=== PATIENT | female | born 1960 | race Caucasian/White ===

== ENCOUNTER → 2018-03-26 | Day surgery (SDC) | payer BC ==
[2018-03-22 09:08] LABS: BASOPHILS # (AUTO) 0.1 (0.0-0.1); BASOPHILS % 1.2 % (0.0-1.0); EOSINOPHILS # (AUTO) 0.5 (0.0-0.4); EOSINOPHILS % 5.9 % (0.0-6.0); HEMOGLOBIN 13.6 g/dL (12.0-16.0); LYMPHOCYTES # (AUTO) 1.6 (1.0-3.2); LYMPHOCYTES % 20.2 % (18.0-39.1); MEAN CORPUSCULAR HEMOGLOBIN 29.4 pg (28-32); MEAN CORPUSCULAR VOLUME 86.6 fL (81-99); MONOCYTES # (AUTO) 0.6 (0.2-0.8); MONOCYTES % 7.9 % (4.4-11.3); NEUTROPHILS % 63.9 % (38.7-80.0); PLATELET COUNT 333 x10e3/uL (140-360); RED BLOOD COUNT 4.62 x10e6/uL (3.6-5.1); RED CELL DISTRIBUTION WIDTH 13.6 % (11.7-14.4)
--- NOTE | 2018-03-22 09:16 | Diagnostic Imaging Report ---
PROCEDURE: X-RAY CHEST, TWO VIEWS COMPARISON: [facility], DX, CHEST 2 VIEWS, 02/27/2012, 10:01. INDICATIONS: PREOPERATIVE CHEST XRAY FOR CYSTOSCOPY FINDINGS: LUNGS: No consolidations or edema. PLEURA: No effusions or pneumothorax. HEART \T\ MEDIASTINUM: The heart is within normal size-limits. BONES \T\ SOFT TISSUES: No acute findings. CONCLUSION: No acute thoracic abnormality or significant interval change. [place] Turner D.O. Dictated by: [place] Turner D.O. on 03/22/2018 at 9:20 Electronically approved by: [place] Turner D.O. on 03/22/2018 at 9:20
[2018-03-22 09:25] LABS: ANION GAP 16.7 mmol/L (8-16); BLOOD UREA NITROGEN 15 mg/dL (7-26); BUN/CREATININE RATIO 18 (6-25); CALCIUM 11.1 mg/dL (8.4-10.2); CARBON DIOXIDE 29 mmol/L (22-29); CHLORIDE 101 mmol/L (98-107); CREATININE, SERUM 0.83 mg/dL (0.57-1.11); EST GLOMERULAR FILTRATION RATE > 60 ML/MIN (60-); GLUCOSE 109 mg/dL (74-118); POTASSIUM 4.7 mmol/L (3.5-5.1); SODIUM 142 mmol/L (136-145)
[~2018-03-26] MED LIST: BRISDELLE; CEFTRIAXONE SOD 1 GM VIAL ONE; FENTANYL CITRATE/PF 100MCG/2 ML INJ ONE; LIDOCAINE HCL 2% LOCAL INJ 5 ML SDV VIAL INJ ONE; MIDAZOLAM HCL 2 MG/2 ML VIAL ONE; PAROXETINE HCL20 MG PO; PROPOFOL IV EMULSION 10 MG/ML 20 ML VIAL ONE; SEVOFLURANE INHAL SOLN 250 ML PEN BTL ONE; SIMVASTATIN40 MG PO; Z.0.VYTORIN 10-201 E PO; Z.1.DIOVAN HCT 3201 PO; [UNRECOGNIZED DRUG - OTHER] PO; [UNRECOGNIZED DRUG - OTHER] PO
--- NOTE | 2018-03-27 12:42 | Operative Report ---
DATE OF PROCEDURE: March 26, 2018 PREOPERATIVE DIAGNOSIS: Recurrent urinary tract infections. POSTOPERATIVE DIAGNOSIS: Recurrent urinary tract infections. PROCEDURE PERFORMED: Cystoscopy. ANESTHESIA: General. ESTIMATED BLOOD LOSS: Minimal. INDICATIONS: Ms. Lynn Kolb is a 57-year-old woman with a history of recurrent urinary tract infections and bladder pain. She now presents for management of this problem. PROCEDURE IN DETAIL: The patient was brought into the operating room, placed in supine position and after administration of general anesthesia was placed in a frogleg position and prepped and draped in the usual fashion. Flexible cystoscopy was performed. The anterior and posterior urethra were noted to be normal. The bladder neck was closed at rest. The bladder was entered without difficulty. Upon entrance into the bladder, the ureteral orifices were in their normal anatomical position and produced clear efflux bilaterally. There were no mucosal lesions identified. There were minimal trabeculations noted in the bladder. The bladder mucosa was otherwise completely normal. There were no stones or debris seen floating in the bladder. The bladder was then drained in its entirety and the cystoscope and sheath were removed. The patient was returned to the supine position and anesthesia was reversed. She was transferred to bed and taken to the postanesthesia care unit in good condition. Of note, needle and instrument count were correct at the conclusion of the case. Job#: [id number] JAYANT
== END | disposition home or self-care (01) ==
LOC: OR 11:18
PROVIDERS: ATTEND Urology
DX: N39.0 Urinary tract infection, site not specified (principal); N32.89 Other specified disorders of bladder; I10 Essential (primary) hypertension; Z01.810 Encounter for preprocedural cardiovascular examination; Z01.812 Encounter for preprocedural laboratory examination; Z01.818 Encounter for other preprocedural examination; Z68.41 Body mass index [BMI] 40.0-44.9, adult
CPT/HCPCS: 36415; 52000; 71046; 80048; 85025; 93005; J0696; J2001; J2250

== ENCOUNTER 2019-02-23 10:19 | Emergency (ER) | payer BC ==
[~2019-02-23] VITALS: Ht 157.5 cm; Wt 99.8 kg
[~2019-02-23 10:19] MED LIST changes: -CEFTRIAXONE SOD 1 GM VIAL ONE; -FENTANYL CITRATE/PF 100MCG/2 ML INJ ONE; -LIDOCAINE HCL 2% LOCAL INJ 5 ML SDV VIAL INJ ONE; -MIDAZOLAM HCL 2 MG/2 ML VIAL ONE; -PROPOFOL IV EMULSION 10 MG/ML 20 ML VIAL ONE; -SEVOFLURANE INHAL SOLN 250 ML PEN BTL ONE
--- OUTSIDE RECORDS SUMMARY | 2019-02-23 10:22 | XMS REPORT | Clinical Summary ---
Author Author [facility] Organization [facility] Address Unknown Phone Unavailable Care Team Providers Care History Faculty Member Name Role Phone Parrish Robison DO PCP Allergies No Known Allergies Medications End Date Status Medication Sig Dispensed Refills Start Date Active simvastatin (ZOCOR) 40 MG TK 1 T PO QD 0 tablet 7 Active valsartan-hydrochlorothia Take 1 tablet 0 zide (DIOVAN HCT) 320-25 by mouth mg per tablet daily. Active valACYclovir (VALTREX) TK 2 TS PO Q 0 1000 MG tablet 12 H 8 Active PARoxetine TAKE 1 30 capsule 1 mesylate,menop.sym, 7.5 CAPSULE(7.5 9 mg capsuleIndications: MG) BY MOUTH Well woman exam with EVERY DAY routine gynecological exam 02/10/2019 Discontinued PARoxetine Take 1 tablet 90 capsule 3 mesylate,menop.sym, (7.5 mg 8 (BRISDELLE) 7.5 mg total) by capsuleIndications: Well mouth once woman exam with routine daily. gynecological exam Active Problems Problem Noted Date At risk for breast cancer 08/18/2016 Overview: Overview: High risk surveillance based on elevated lifetime risk of developing breast cancer; Tyrer-Cuzik risk assessment of 17.7-30% increased lifetime risk Family history of malignant melanoma 03/03/2016 Family history of malignant neoplasm of breast in first degree relative 03/03/2016 Family history of malignant neoplasm of uterus 03/03/2016 Encounters Care Team Description Date Type Specialty Ange Dutton MD Well woman exam with routine gynecological exam 02/10/2019 Refill Obstetrics and Gynecology Ange Dutton MD 04/19/2018 Refill Obstetrics and Gynecology after 02/22/2018 Family History Medical History Relation Name Comments Breast cancer Mother Breast cancer Sister Relation Name Status Comments Mother Sister Social History Date Tobacco Use Types Packs/Day Years Used Former Smoker Cigarettes 0.5 10 Smokeless Tobacco: Never Used Alcohol Use Drinks/Week oz/Week Comments Yes 4 Standard drinks or equivalent Sex Assigned at Date Recorded Not on file Industry Job Start Date Occupation Not on file Not on file Not on file Travel End Travel History Travel Start No recent travel history available. Last Filed Vital Signs Not on file Plan of Treatment Care Team Description Date Type Specialty Ange Dutton MD [address] [facility] [address] [place], [place] [id number] 02/27/2019 Office Visit Obstetrics and Gynecology Health Maintenance Due Date Last Done Comments BREAST CANCER SCREENING 2010 COLON CANCER SCREENING 2010 SHINGLES VACCINES (#1) 2010 INFLUENZA VACCINE 04/17/2019 Results Not on fileafter 02/22/2018 Insurance Type Payer Benefit Subscriber ID Effective Phone Address Plan / Dates Group PPO BCBS BCBS xxxxxxxxxxxx 2016-P CHOICE resent PPO/BAYRON BOOTH PPO Advance Directives Patient has advance care planning documents on file. For more information, blaise rojo contact: Raman Rodriguez [address] [place] [address]
[2019-02-23 10:53] LABS: BILIRUBIN,URINE NEGATIVE (NEGATIVE); CLARITY,URINE CLEAR (CLEAR); COLOR,URINE YELLOW (YELLOW); KETONES,URINE NEGATIVE (NEGATIVE); LEUKOCYTE ESTERASE ,URINE NEGATIVE (NEGATIVE); NITRITE,URINE NEGATIVE (NEGATIVE); PROTEIN,URINE DIPSTICK NEGATIVE (NEGATIVE); URINE UROBILINOGEN 0.2 mg/dL (0.2 - 1)
[2019-02-23 10:53] LABS: BASOPHILS # (AUTO) 0.1 (0.0-0.1); BASOPHILS % 0.8 % (0.0-1.0); EOSINOPHILS # (AUTO) 0.3 (0.0-0.4); EOSINOPHILS % 2.9 % (0.0-6.0); HEMATOCRIT 42.7 % (34.2-44.1); HEMOGLOBIN 14.7 g/dL (12.0-16.0); LYMPHOCYTES # (AUTO) 1.3 (1.0-3.2); LYMPHOCYTES % 13.3 % (18.0-39.1); MEAN CORPUSCULAR HEMOGLOBIN 29.9 pg (28-32); MEAN CORPUSCULAR HGB CONC 34.4 g/dL (31-35); MONOCYTES # (AUTO) 0.5 (0.2-0.8); MONOCYTES % 5.7 % (4.4-11.3); NEUTROPHILS # (AUTO) 7.2 (2.1-6.9); NEUTROPHILS % 76.6 % (38.7-80.0); PLATELET COUNT 290 x10e3/uL (140-360); RED BLOOD COUNT 4.91 x10e6/uL (3.6-5.1); RED CELL DISTRIBUTION WIDTH 13.4 % (11.7-14.4)
[2019-02-23] MEDS ORDERED: DIATRIZOATE MEGL/DIATRIZOA SOD 30 ML BTL PO ONE (10:53)
[2019-02-23 10:58] LABS: BACTERIA,URINE FEW /HPF; EPITHELIAL CELLS,URINE MODERATE /LPF; PREGNANCY TEST, URINE NEGATIVE (NEGATIVE); RBC,URINE 0-5 /HPF (0-5); WBC,URINE (MAN) 0-5 /HPF (0-5)
[2019-02-23 11:13] LABS: ALANINE AMINOTRANSFERASE 23 IU/L (0-55); ALBUMIN 4.4 g/dL (3.5-5.0); ALBUMIN/GLOBULIN RATIO 1.2 (0.8-2.0); ALKALINE PHOSPHATASE 83 IU/L (40-150); AMYLASE 60 U/L (25-125); ANION GAP 14.8 mmol/L (8-16); BLOOD UREA NITROGEN 14 mg/dL (7-26); BUN/CREATININE RATIO 16 (6-25); CALCIUM 10.5 mg/dL (8.4-10.2); CARBON DIOXIDE 25 mmol/L (22-29); CHLORIDE 99 mmol/L (98-107); CREATININE, SERUM 0.85 mg/dL (0.57-1.11); EST GLOMERULAR FILTRATION RATE > 60 ML/MIN (60-); GLUCOSE 124 mg/dL (74-118); LIPASE 6 U/L (8-78); MAGNESIUM 1.9 MG/DL (1.3-2.1); POTASSIUM 3.8 mmol/L (3.5-5.1); SODIUM 135 mmol/L (136-145)
--- NOTE | 2019-02-23 12:36 | Diagnostic Imaging Report ---
EXAM: CT of the abdomen and pelvis WITH contrast HISTORY: LLQ/left flank pain, rule out diverticulitis. COMPARISON: None. TECHNIQUE: The abdomen and pelvis were scanned utilizing a multidetector helical scanner. Coronal and sagittal reformats are provided. PROTOCOL: Routine IV CONTRAST: 100 cc of Isovue-370. ORAL CONTRAST: Dilute Gastrografin RADIATION DOSE: Total DLP: 913.49 mGy*cm Estimated effective dose: (DLP x 0.015 x size factor) Dose modulation, iterative reconstruction, and/or weight based adjustment of the mA/kV was utilized to reduce the radiation dose to as low as reasonably achievable. COMPLICATIONS: None FINDINGS: LOWER THORAX: Unremarkable. HEPATOBILIARY: No mass. No biliary dilation. No calcified gallstone. SPLEEN: No splenomegaly. PANCREAS: No focal masses or ductal dilatation. Marked diffuse parenchymal atrophy. ADRENALS: No discrete adrenal nodule. KIDNEYS/URETERS: No hydronephrosis, stones, or definite solid mass lesions. PELVIC ORGANS/BLADDER: The visualized pelvic organs appear unremarkable. GI TRACT: Colonic diverticulosis, most notably the sigmoid colon. Focal wall thickening and adjacent fat stranding about a sigmoid diverticulum (axial image 64). The appendix is normal. PERITONEUM / RETROPERITONEUM: No free air or fluid. LYMPH NODES: No pathologically enlarged lymph node. VESSELS: Mild scattered atherosclerotic vascular calcifications. BONES: No aggressive osseous lesion or acute fracture. SOFT TISSUES: Unremarkable. IMPRESSION: Acute sigmoid diverticulitis, without associated free air or abscess. Signed by: Dr. Guido Hyman D.O., M.M.M. on 02/23/2019 12:32 PM
[2019-02-23] MEDS ORDERED: METRONIDAZOLE 500MG/NS 100ML 100 ML IV STA (12:44)
[2019-02-23] MEDS ORDERED: SODIUM CHLORIDE 0.9% 50ML 50 ML ONE (13:05)
[2019-02-23] MEDS ORDERED: IOPAMIDOL 370 MG/ML 200 ML INFUS..BTL INJ ONE (13:05)
[2019-02-23] MEDS ORDERED: FLAGYL500 MG PO (13:14)
[2019-02-23] MEDS ORDERED: CIPRO500 MG PO (13:14)
[2019-02-23] MEDS ORDERED: ZOFRAN4 MG SL (13:14)
[2019-02-23] MEDS ORDERED: TYLENOL WITH C1 EACH PO (13:14)
[2019-02-23 14:31] VITALS: BP 110/83
== END 2019-02-23 14:39 | disposition home or self-care (01) ==
LOC: ER 10:19
DX: R10.32 Left lower quadrant pain (principal); R11.0 Nausea; K57.32 Diverticulitis of large intestine without perforation or abscess without bleeding
CPT/HCPCS: 36415; 74177; 80053; 81001; 81025; 82150; 83605; 83690; 83735; 85025; 93005; 99284; Q9967

== ENCOUNTER 2019-04-03 22:41 | Inpatient (IN) | payer BC ==
[~2019-04-03] VITALS: Ht 157.5 cm; Wt 103.4 kg
[~2019-04-03 22:41] MED LIST changes: +CIPRO500 MG PO; +FLAGYL500 MG PO; +TYLENOL WITH C1 EACH PO; +ZOFRAN4 MG SL
--- OUTSIDE RECORDS SUMMARY | 2019-04-03 22:44 | XMS REPORT | Clinical Summary ---
Author Author [facility] Organization [facility] Address Unknown Phone Unavailable Care Team Providers Care Warehouse Consultant Name Role Phone Parrish Robison DO PCP Allergies No Known Allergies Medications End Date Status Medication Sig Dispensed Refills Start Date Active simvastatin (ZOCOR) 40 MG TK 1 T PO QD 0 tablet 7 Active valACYclovir (VALTREX) TK 2 TS PO Q 0 1000 MG tablet 12 H 8 Active benazepril-hydrochlorothi TK 1 T PO QD 0 azide (LOTENSIN HCT) 9 20-25 mg per tablet Active metroNIDAZOLE (FLAGYL) TK 1 T PO BID 0 500 MG tablet TAT 9 Active ciprofloxacin (CIPRO) 500 TK 1 T PO BID 0 MG tablet 9 03/12/2020 Active PARoxetine Take 1 tablet 90 tablet 3 mesylate,menop.sym, 7.5 (7.5 mg 9 mg capsuleIndications: total) by Well woman exam with mouth daily. routine gynecological exam 02/27/2019 Discontinued valsartan-hydrochlorothia Take 1 tablet 0 zide (DIOVAN HCT) 320-25 by mouth mg per tablet daily. 02/10/2019 Discontinued PARoxetine Take 1 tablet 90 capsule 3 mesylate,menop.sym, (7.5 mg 8 (BRISDELLE) 7.5 mg total) by capsuleIndications: Well mouth once woman exam with routine daily. gynecological exam 03/13/2019 Discontinued PARoxetine TAKE 1 30 capsule 1 mesylate,menop.sym, 7.5 CAPSULE(7.5 9 mg capsuleIndications: MG) BY MOUTH Well woman exam with EVERY DAY routine gynecological exam Active Problems Problem Noted Date At risk for breast cancer 08/18/2016 Overview: Overview: High risk surveillance based on elevated lifetime risk of developing breast cancer; Parker-José Miguel risk assessment of 17.7-30% increased lifetime risk Family history of malignant melanoma 03/03/2016 Family history of malignant neoplasm of breast in first degree relative 03/03/2016 Family history of malignant neoplasm of uterus 03/03/2016 Encounters Care Team Description Date Type Specialty Mikhail Garcia 03/12/2019 Telephone Obstetrics and Gynecology Ange Dutton MD 03/11/2019 Refill Obstetrics and Gynecology Ange Dutton MD Well woman exam with routine gynecological exam 03/06/2019 Telephone Obstetrics and Gynecology Ange Dutton MD Well woman exam with routine gynecological exam (Primary Dx); Screening for breast cancer; Family history of malignant neoplasm of breast in first degree relative 02/27/2019 Office Visit Obstetrics and Gynecology Ange Dutton MD Well woman exam with routine gynecological exam 02/10/2019 Refill Obstetrics and Gynecology Ange Dutton MD 04/19/2018 Refill Obstetrics and Gynecology after 04/02/2018 Family History Medical History Relation Name Comments [...] travel history available. Last Filed Vital Signs Time Taken Vital Sign Reading 02/27/2019 8:35 AM CDT Blood Pressure 119/86 02/27/2019 8:35 AM CDT Pulse 80 - Temperature - - Respiratory Rate - - Oxygen Saturation - - Inhaled Oxygen - Concentration 02/27/2019 8:35 AM CDT Weight 103 kg (227 lb) 02/27/2019 8:35 AM CDT Height 157.5 cm (5' 2") 02/27/2019 8:35 AM CDT Body Mass Index 41.52 Plan of Treatment Health Maintenance Due Date Last Done Comments BREAST CANCER SCREENING 2010 COLONOSCOPY SCREENING 2010 SHINGLES VACCINES (#1) 2010 INFLUENZA VACCINE 04/17/2019 Procedures Comments Procedure Name Priority Date/Time Associated Diagnosis HPV MRNA E6/E7 Routine 02/27/2019 8:42 AM CDT THINPREP TIS PAP Routine 02/27/2019 8:42 AM CDT after 04/02/2018 Results * HPV mRNA E6/E7 (02/27/2019 8:42 AM CDT) HPV mRNA e6/e7 Not Detected Not Detected [facility] Comment: [facility] This test was performed using ING II the APTIMA HPV Assay ([employer] This assay detects E6/E7 viral messenger RNA (mRNA) from 14 high-risk HPV types (16,18,31,33,35,39,45,51,52,56 ,58,59,66,68). The analytical performance characteristics of this assay have been determined by [email or web address]. The modifications have not been cleared or approved by the FDA. This assay has been validated pursuant to the CLIA regulations and is used for clinical purposes. Specimen Resulting Agency Comment Performing Organization Information: Site ID: [id number] [facility]: [facility] Address: [address] [place] [phone] Director: Dr. Adrian Eller Performing Organization Address City/State/Zipcode Phone Number STEPHANIA MICHAELS[address] [place] [address] II * THINPREP TIS PAP (02/27/2019 8:42 AM CDT) Clinical None given [facility] information [facility] [place] Date of last NONE GIVEN [facility] menstrual DIAGNOSTICS period [place] Prev. pap: NONE GIVEN [facility] [place] Prev. bx: NONE GIVEN [facility] [place] Source None given [facility] [place] Statement of Comment: [facility] adequacy Satisfactory for evaluation. DIAGNOSTICS Endocervical/transformation [place] zone component absent. Interpretation/ Comment: Negative for [facility] result: intraepithelial lesion or DIAGNOSTICS malignancy. [place] Comment Comment: [facility] This Pap test has been DIAGNOSTICS evaluated with computer [employer] assisted technology. Cytotechnologis Comment: [facility] t [facility], CT(ASCP) DIAGNOSTICS CT screening location: [place] [address] [address], [place] [id number] Comment Comment: [facility] EXPLANATORY NOTE: DIAGNOSTICS The Pap is a screening test [place] for cervical cancer. It is not a diagnostic test and is subject to false negative and false positive results. It is most reliable when a satisfactory sample, regularly obtained, is submitted with relevant clinical findings and history, and when the Pap result is evaluated along with historic and current clinical information. Specimen Resulting Agency Comment Performing Organization Information: Site ID: [id number] Name: [facility] Address: [address] [place] [address] Director: Uma Childers Performing Organization Address City/State/Zipcode Phone Number STEPHANIA MICHAELS [place] [address] [place], [place] [id number] after 04/02/2018 Insurance Type Payer Benefit Subscriber ID Effective Phone Address Plan / Dates Group PPO BCBS BCBS xxxxxxxxxxxx 2016-P CHOICE resent PPO/BAYRON BOOTH PPO Advance Directives Patient has advance care planning documents on file. For more information, blaise rojo contact: Raman Rodriguez [address] [place] [address]
[2019-04-03 23:23] LABS: BASOPHILS # (AUTO) 0.1 (0.0-0.1); BASOPHILS % 1.3 % (0.0-1.0); EOSINOPHILS # (AUTO) 0.5 (0.0-0.4); EOSINOPHILS % 5.2 % (0.0-6.0); HEMATOCRIT 39.1 % (34.2-44.1); HEMOGLOBIN 13.3 g/dL (12.0-16.0); LYMPHOCYTES % 21.2 % (18.0-39.1); MEAN CORPUSCULAR HEMOGLOBIN 29.5 pg (28-32); MEAN CORPUSCULAR VOLUME 86.7 fL (81-99); MONOCYTES # (AUTO) 0.7 (0.2-0.8); MONOCYTES % 7.5 % (4.4-11.3); NEUTROPHILS # (AUTO) 6.1 (2.1-6.9); NEUTROPHILS % 63.5 % (38.7-80.0); PLATELET COUNT 330 x10e3/uL (140-360); RED BLOOD COUNT 4.51 x10e6/uL (3.6-5.1); RED CELL DISTRIBUTION WIDTH 13.2 % (11.7-14.4)
[2019-04-03 23:24] LABS: BILIRUBIN,URINE NEGATIVE (NEGATIVE); CLARITY,URINE SL CLOUDY (CLEAR); COLOR,URINE YELLOW (YELLOW); KETONES,URINE NEGATIVE (NEGATIVE); LEUKOCYTE ESTERASE ,URINE NEGATIVE (NEGATIVE); NITRITE,URINE NEGATIVE (NEGATIVE); PROTEIN,URINE DIPSTICK NEGATIVE (NEGATIVE); URINE UROBILINOGEN 0.2 mg/dL (0.2 - 1)
[2019-04-03 23:34] LABS: BACTERIA,URINE RARE /HPF; EPITHELIAL CELLS,URINE MODERATE /LPF; RBC,URINE 0-5 /HPF (0-5); WBC,URINE (MAN) 0-5 /HPF (0-5)
[2019-04-03 23:38] LABS: INR 0.89; PROTHROMBIN TIME 12.5 seconds (11.9-14.5)
[2019-04-03 23:39] LABS: PARTIAL THROMBOPLASTIN TIME 32.4 seconds (23.8-35.5)
[2019-04-03 23:57] LABS: ALBUMIN 3.9 g/dL (3.5-5.0); ALKALINE PHOSPHATASE 83 IU/L (40-150); ANION GAP 16.3 mmol/L (8-16); BLOOD UREA NITROGEN 13 mg/dL (7-26); BUN/CREATININE RATIO 18 (6-25); CALCIUM 10.3 mg/dL (8.4-10.2); CARBON DIOXIDE 22 mmol/L (22-29); CHLORIDE 99 mmol/L (98-107); CREATININE, SERUM 0.73 mg/dL (0.57-1.11); EST GLOMERULAR FILTRATION RATE > 60 ML/MIN (60-); GLUCOSE 107 mg/dL (74-118); POTASSIUM 3.3 mmol/L (3.5-5.1); SODIUM 134 mmol/L (136-145)
[2019-04-04] VITALS (9 sets, daily range): BP systolic 114–138; BP diastolic 75–99
--- OUTSIDE RECORDS SUMMARY | 2019-04-04 00:24 | XMS REPORT | Clinical Summary ---
Author Author [facility]argo [facility] Organization [facility] Address Unknown Phone Unavailable Care Team Providers Care Wet Press Tender Name Role Phone Parrish Robison DO PCP [...] elevated lifetime risk of developing breast cancer; Miriamer-José Miguel risk assessment of 17.7-30% increased lifetime [...] MD 04/19/2018 Refill Obstetrics and Gynecology after 04/03/2018 Family History Medical History Relation Name Comments [...] PAP Routine 02/27/2019 8:42 AM CDT after 04/03/2018 Results * HPV mRNA E6/E7 (02/27/2019 8:42 AM CDT) HPV mRNA e6/e7 Not Detected Not Detected [facility] Comment: [facility] This test was performed using ING II the APTIMA HPV Assay ([employer] This assay detects E6/E7 viral messenger RNA (mRNA) from 14 high-risk HPV types (16,18,31,33,35,39,45,51,52,56 ,58,59,66,68). The analytical performance characteristics of this assay have been determined by [employer]. The modifications have not been cleared or approved by the FDA. This assay has been validated pursuant to the CLIA regulations and is used for clinical purposes. Specimen Resulting Agency Comment Performing Organization Information: Site ID: [id number] [facility]: [facility] Address: [address] [place] [phone] Director: Dr. Adrian Eller Performing Organization Address City/State/Zipcode Phone Number STEPHANIA MICHAELS[address] [place] [address] II * THINPREP TIS PAP (02/27/2019 8:42 AM CDT) Clinical None given [facility] information [employer] [place] Date of last NONE GIVEN [facility] menstrual DIAGNOSTICS period [place] Prev. pap: NONE GIVEN [facility] [place] Prev. bx: NONE GIVEN [facility] [place] Source None given [facility] [place] Statement of Comment: [facility] adequacy Satisfactory for evaluation. DIAGNOSTICS Endocervical/transformation [place] zone component absent. Interpretation/ Comment: Negative for [facility] result: intraepithelial lesion or DIAGNOSTICS malignancy. [place] Comment Comment: [facility] This Pap test has been DIAGNOSTICS evaluated with computer [employer] assisted technology. Cytotechnologis Comment: [facility] t [facility], CT(ASCP) DIAGNOSTICS CT screening location: [place] [address] [address], [place] [id number] Comment Comment: [facility] EXPLANATORY NOTE: DIAGNOSTICS The Pap is a screening test [place] for cervical cancer. It is not a diagnostic test and is subject to false negative and false positive results. It is most reliable when a satisfactory sample, regularly obtained, is submitted with relevant clinical findings and history, and when the Pap result is evaluated along with historic and current clinical information. Specimen Resulting Agency Comment Performing Organization Information: Site ID: [id number]: [facility] Address: [address] [place] [address] Director: Uma Childers Performing Organization Address City/State/Zipcode Phone Number STEPHANIA MICHAELS [place] [address] [place], [place] [phone] after 04/03/2018 Insurance Type Payer Benefit Subscriber ID Effective Phone Address Plan / Dates Group PPO BCBS BCBS xxxxxxxxxxxx 2016-P CHOICE resent PPO/BAYRON BOOTH PPO Advance Directives Patient has advance care planning documents on file. For more information, blaise rojo contact: [place] Rodriguez [address] [place] [address]
[2019-04-04] MEDS ORDERED: ONDANSETRON HCL INJ 2MG/ML 2ML 2 MG/ML VIAL IV PRN (00:30)
[2019-04-04] MEDS ORDERED: KCL 20MEQ/.9 SOD CHL 1,000 ML IV ONE (00:30)
[2019-04-04 00:40] LABS: ALANINE AMINOTRANSFERASE 23 IU/L (0-55)
[2019-04-04] MEDS ORDERED: BENAZEPRIL-HCT1 EAC3 PO (00:56)
[2019-04-04] MEDS: METRONIDAZOLE 500MG/NS 100ML 100 ML IV SCH ×4 (01:11→17:45)
[2019-04-04] MEDS: LEVOFLOXACIN 500MG/D5W 100ML 100 ML IV SCH (02:11)
--- NOTE | 2019-04-04 02:35 | NUR ---
PT ARRIVED ON THE UNIT VIA STRETCHER AT 0103. PT IS A&OX3. RESPIRATION IS EVEN AND UNLABORED, NO DISTRESS NOTED. PT ORIENTED TO THE ROOM, BED IN THE LOWEST POSITION, LOCKED, AND CALL LIGHT WITHIN REACH. ADMISSION AND HEAD TO TOE ASSESSMENT COMPLETE. WILL CONTINUE TO MONITOR.
[2019-04-04 06:23] LABS: HEMATOCRIT 37.1 % (34.2-44.1); HEMOGLOBIN 12.6 g/dL (12.0-16.0)
--- NOTE | 2019-04-04 07:25 | NUR ---
pt up in bed sleeping no distress noted no s/s discomfort
[2019-04-04 12:10] LABS: HEMATOCRIT 36.3 % (34.2-44.1); HEMOGLOBIN 12.6 g/dL (12.0-16.0)
[2019-04-04 12:27] LABS: WBC,FECAL (FECAL LACTOFERRIN) POSITIVE (NEGATIVE)
[2019-04-04 12:28] LABS: C DIFFICILE TOXIN A&B AMP PROB **POSITIVE** (NEGATIVE)
--- NOTE | 2019-04-04 14:52 | NUR ---
DR GALINDO HERE
[2019-04-04] MEDS ORDERED: ACETAMINOPHEN 325 MG TAB PO PRN (15:30)
[2019-04-04] MEDS: VANCOMYCIN 250MG/5ML ORAL SOLN PO SCH (17:45)
--- NOTE | 2019-04-04 17:46 | NUR ---
pt up in chair ,denies pain ,no distress ntod
--- NOTE | 2019-04-04 19:35 | NUR ---
PATIENT SITTING UP IN THE RECLINER, NO DISTRESS OBSERVED AND SHE DENIES PAIN. SHE REMAINS ON CONTACT ISOLATION FOR C-DIFF, SHE DENIES DIARRHEA AT THIS TIME. CALL LIGHT WITHIN EASY REACH, SHE'S INSTRUCTED TO CALL FOR ASSISTANCE NEEDED.
[2019-04-04 21:00] LABS: HEMATOCRIT 38.3 % (34.2-44.1)
--- NOTE | 2019-04-04 23:30 | NUR ---
PATIENT IS ASLEEP, SHE'S EASY TO AROUSE. NO ACUTE DISTRESS OBSERVED, SHE DENIES HAVING DIARRHEA AT THIS TIME. CALL LIGHT WITHIN EASY REACH, SHE'S INSTRUCTED TO CALL FOR ASSISTANCE NEEDED.
[2019-04-05] VITALS: BP 126/75
[2019-04-05] MEDS: METRONIDAZOLE 500MG/NS 100ML 100 ML IV SCH ×2 (00:14→06:14)
[2019-04-05] MEDS: VANCOMYCIN 250MG/5ML ORAL SOLN PO SCH ×2 (00:14→06:14)
[2019-04-05] MEDS: LEVOFLOXACIN 500MG/D5W 100ML 100 ML IV SCH (01:21)
--- NOTE | 2019-04-05 03:10 | NUR ---
CONDITION REMAINS STABLE WITHOUT ACUTE DISTRESS, SHE DENIES PAIN. CALL LIGHT WITHIN EASY REACH, SHE'S INSTRUCTED TO CALL FOR ASSISTANCE NEEDED.
[2019-04-05 04:00] VITALS: BP 120/79
[2019-04-05 05:51] LABS: HEMATOCRIT 37.5 % (34.2-44.1); HEMOGLOBIN 12.7 g/dL (12.0-16.0)
[2019-04-05 06:18] LABS: ALANINE AMINOTRANSFERASE 24 IU/L (0-55); ALBUMIN 3.6 g/dL (3.5-5.0); ALKALINE PHOSPHATASE 65 IU/L (40-150); ANION GAP 14.9 mmol/L (8-16); BLOOD UREA NITROGEN 6 mg/dL (7-26); BUN/CREATININE RATIO 8 (6-25); CALCIUM 10.2 mg/dL (8.4-10.2); CARBON DIOXIDE 25 mmol/L (22-29); CHLORIDE 103 mmol/L (98-107); CREATININE, SERUM 0.75 mg/dL (0.57-1.11); EST GLOMERULAR FILTRATION RATE > 60 ML/MIN (60-); GLUCOSE 105 mg/dL (74-118); POTASSIUM 3.9 mmol/L (3.5-5.1); SODIUM 139 mmol/L (136-145)
[2019-04-05 07:30] VITALS: BP 120/76
--- NOTE | 2019-04-05 07:30 | NUR ---
pt up in bed awake ,denies pain,no c/o diarrhea,
[2019-04-05 07:51] VITALS: BP 120/76
[2019-04-05] MEDS ORDERED: PANTOPRAZOLE 40 MG 10ML VIAL IV SCH (09:00)
[2019-04-05 12:00] VITALS: BP 122/88
[2019-04-05 12:17] LABS: HEMATOCRIT 40.4 % (34.2-44.1); HEMOGLOBIN 13.5 g/dL (12.0-16.0)
--- NOTE | 2019-04-05 14:07 | Discharge Summary ---
ADMIT DIAGNOSIS: Acute diverticulitis. DISCHARGE DIAGNOSES: 1. Clostridium difficile colitis. 2. Diverticular disease (history of acute diverticulitis in February 2019). 3. Hypertension. 4. Extreme obesity, BMI of 41 complicating underlying hypertension. HOSPITAL COURSE: This is a 58-year-old white woman, who was admitted to [facility] with a diagnosis of diverticulitis. During her brief hospitalization, stool culture revealed the presence of Clostridium difficile toxin. Thus in addition to intravenous metronidazole, she was started on oral vancomycin, which she tolerated quite well. During this hospital stay, the patient's diarrhea resolved completely. The patient's stool studies also were positive for occult stool and lactoferrin was also positive. Her condition on discharge was stable. DISCHARGE MEDICATIONS: 1. Metronidazole 500 mg p.o. t.i.d. for 14 days. 2. Paroxetine 7.5 mg daily. 3. Simvastatin 40 mg at bedtime. 4. Benazepril/hydrochlorothiazide 10/12.5 once daily. FOLLOWUP INSTRUCTIONS: 1. The patient instructed to follow up with Dr. Evgeny Medina, her residential door installer within two weeks. 2. The patient instructed to follow up with Dr. Zak Dewitt within 2-3 weeks also. 3. The patient will follow up with Dr. Parrish Robison after she sees her residential door installer and general surgeon. MD CINDA WittO/CARISSA /[id number] cc: DO Zak Gu MD Maurice S Haddad, MD MTDRachel
[2019-04-05] MEDS ORDERED: FLAGYL250 MG PO (14:12)
--- NOTE | 2019-04-05 14:20 | NUR ---
PT DISCHARGED HOME IV DCD WITHOUT REDNESSOR SWELLING,PRESCRIPTIONS AND INSTRUCTIONS GIVEN COPY ON CHART.AMBULATED TO AUTO
[2019-06-09] MEDS ORDERED: SINGULAIR10 MG PO (08:53)
== END 2019-04-05 14:24 | disposition home or self-care (01) | DRG 372 ==
LOC: ER 22:41 → ERHOLD 04-04 00:16 → MED/SURG3 04-04 01:04
DX: A04.72 Enterocolitis due to Clostridium difficile, not specified as recurrent (principal); E87.1 Hypo-osmolality and hyponatremia; Z68.41 Body mass index [BMI] 40.0-44.9, adult; I10 Essential (primary) hypertension; Z87.440 Personal history of urinary (tract) infections; E78.5 Hyperlipidemia, unspecified; Z82.49 Family history of ischemic heart disease and other diseases of the circulatory system; E87.6 Hypokalemia; Z87.19 Personal history of other diseases of the digestive system; K57.30 Diverticulosis of large intestine without perforation or abscess without bleeding; E66.01 Morbid (severe) obesity due to excess calories
CPT/HCPCS: 36415; 80053; 81001; 82270; 83630; 83993; 85014; 85018; 85025; 85610; 85730; 86850; 86900; 87045; 87177; 87493; 96367; 99284; J1956

== ENCOUNTER → 2019-06-14 | Day surgery (SDC) | payer BC ==
[~2019-06-14] MED LIST changes: +BENAZEPRIL-HCT1 EAC3 PO; +FENTANYL CITRATE/PF 100MCG/2 ML INJ ONE; +FLAGYL250 MG PO; +HYOSCYAMINE 0.125 MG TAB ONE; +MIDAZOLAM HCL 2 MG/2 ML VIAL ONE; +PROPOFOL IV EMULSION 10 MG/ML 50 ML VIAL ONE; +SINGULAIR10 MG PO
--- OUTSIDE RECORDS SUMMARY | 2019-06-14 06:37 | XMS REPORT | Clinical Summary ---
Author Author [facility] Address Unknown Phone Unavailable Care Team Providers Care Director Of Marketing Operations Name Role Phone Parrish Robison DO PCP [...] mouth daily. routine gynecological exam 02/27/2019 Discontinued (Formulary change) valsartan-hydrochlorothia Take 1 tablet 0 zide (DIOVAN HCT) 320-25 by mouth mg per tablet daily. 02/10/2019 Discontinued (Reorder) PARoxetine Take 1 tablet 90 capsule 3 mesylate,menop.sym, (7.5 mg 8 (BRISDELLE) 7.5 mg total) by capsuleIndications: Well mouth once woman exam with routine daily. gynecological exam 03/13/2019 Discontinued (Reorder) PARoxetine TAKE 1 30 capsule 1 mesylate,menop.sym, [...] gynecological exam 02/10/2019 Refill Obstetrics and Gynecology after 06/13/2018 Family History Medical History Relation Name Comments Breast cancer Mother Breast cancer Sister Relation Name Status Comments Mother Sister Social History Date Tobacco Use Types Packs/Day Years Used Former Smoker Cigarettes 0.5 10 Smokeless Tobacco: Never Used Drinks/Week oz/Week Comments Alcohol Use 4 Standard drinks or equivalent Yes Sex Assigned at Date Recorded Not on file Industry Job Start Date Occupation Not on file Not on file Not on file Travel End Travel History Travel Start No recent travel history available. Last Filed Vital Signs Reading Time Taken Comments Vital Sign 119/86 02/27/2019 8:35 AM CDT Blood Pressure 80 02/27/2019 8:35 AM CDT Pulse - - Temperature - - Respiratory Rate - - Oxygen Saturation - - Inhaled Oxygen Concentration 103 kg (227 lb) 02/27/2019 8:35 AM CDT Weight 157.5 cm (5' 2") 02/27/2019 8:35 AM CDT Height 41.52 02/27/2019 8:35 AM CDT Body Mass Index Plan of Treatment Health Maintenance Due Date Last Done Comments CERVICAL CANCER SCREENING 1981 BREAST CANCER SCREENING 2010 COLONOSCOPY SCREENING 2010 SHINGLES VACCINES (#1) 2010 INFLUENZA VACCINE 04/17/2019 Procedures Comments Procedure Name Priority Date/Time Associated Diagnosis HPV MRNA E6/E7 Routine 02/27/2019 8:42 AM CDT THINPREP TIS PAP Routine 02/27/2019 8:42 AM CDT after 06/13/2018 Results * HPV mRNA E6/E7 (02/27/2019 8:42 AM CDT) HPV mRNA e6/e7 Not Detected Not Detected [facility] Comment: [facility] This test was performed using ING II the APTIMA HPV Assay ([employer].). This assay detects E6/E7 viral messenger RNA (mRNA) from 14 high-risk HPV types (16,18,31,33,35,39,45,51,52,56 ,58,59,66,68). The analytical performance characteristics of this assay have been determined by [employer]. The modifications have not been cleared or approved by the FDA. This assay has been validated pursuant to the CLIA regulations and is used for clinical purposes. Specimen Resulting Agency Comment Performing Organization Information: Site ID: [id number] Address: [address] [place] [id number] Director: Dr. Adrian Eller Performing Organization Address City/State/Zipcode Phone Number STEPHANIA MICHAELS[address] [place] [address] II * THINPREP TIS PAP (02/27/2019 8:42 AM CDT) Clinical None given [facility] information [employer] THAYER Date of last NONE GIVEN [facility] menstrual DIAGNOSTICS period BRIGGS Prev. pap: NONE GIVEN [facility] TH[facility] Prev. bx: NONE GIVEN [facility] TH[facility] Source None given [facility] Statement of Comment: [facility] adequacy Satisfactory for evaluation. DIAGNOSTICS Endocervical/transformation THAYER zone component absent. Interpretation/ Comment: Negative for [facility] result: intraepithelial lesion or DIAGNOSTICS malignancy. THAYER Comment Comment: [facility] This Pap test has been DIAGNOSTICS evaluated with computer [employer] assisted technology. Cytotechnologis Comment: [facility] t [facility], CT(ASCP) DIAGNOSTICS CT screening location: [place] [address] [address], [place] [id number] Comment Comment: [facility] EXPLANATORY NOTE: DIAGNOSTICS The Pap is a screening test THAYER for cervical cancer. It is not a diagnostic test and is subject to false negative and false positive results. It is most reliable when a satisfactory sample, regularly obtained, is submitted with relevant clinical findings and history, and when the Pap result is evaluated along with historic and current clinical information. Specimen Resulting Agency Comment Performing Organization Information: Site ID: [id number] Name: [facility] Address: [address] [place] [address] Director: Uma Childers Performing Organization Address City/State/Zipcode Phone Number STEPHANIA Tangled THAYER [address] [place] [address] after 06/13/2018 Insurance Type Payer Benefit Subscriber ID Effective Phone Address Plan / Dates Group PPO BCBS BCBS xxxxxxxxxxxx 2016-P CHOICE resent PPO/BAYRON BOOTH PPO Advance Directives For more information, please contact: [phone] Patient Medical Scribe Explanation Type Date Recorded Advance Directives, Living Will and Medical Power of Skiver Machine
[2019-06-14 08:55] VITALS: BP 97/77
--- NOTE | 2019-06-14 11:20 | Operative Report ---
DATE OF PROCEDURE: 06/14/2019 SURGEON: Evgeny Medina MD PROCEDURE: Colonoscopy with polypectomy. INDICATIONS FOR COLONOSCOPY: History of diverticulitis, colorectal cancer screening. MEDICATIONS: The patient was done under MAC, please see anesthesiologist's note. PROCEDURE IN DETAIL: With the patient in left lateral decubitus position, a flexible fiberoptic Olympus colonoscope was inserted into the rectum with ease and advanced all the way to the cecum. The scope was then withdrawn slowly. Mucosa overlying the cecum appeared to be within normal limits. Diverticular disease was noted to be scattered throughout to its more prominent in the left colon. The mucosa overlying the ascending colon, transverse colon other than for diverticulosis appeared to be within normal limits. One polyp was hot biopsied from the descending colon. There was a focal area of mild diverticulitis noted in the sigmoid colon. One polyp was hot biopsied from the sigmoid colon. Three polyps were hot biopsied from the rectum. The scope was then retroflexed into the distal rectum and small internal hemorrhoids were noted, none of which was actively bleeding. Also hypertrophied anal papillae were noted. The scope was then straightened out, it was subsequently withdrawn. The patient tolerated the procedure well. IMPRESSION: 1. Pandiverticulosis. 2. Descending colon polyp, hot biopsied. 3. Focal mild diverticulitis of sigmoid colon. 4. Sigmoid colon polyp, hot biopsied. 5. Rectal polyps x3, hot biopsied. 6. Internal hemorrhoids, none actively bleeding. 7. Hypertrophied anal papillae. PLAN: Follow up histology. We will initiate another course of antibiotics if the patient is symptomatic. The patient might benefit from a followup colonoscopy in 3 years. A total of 5 polyps were removed. Evgeny Medina MD [facility] [place] /[id number] cc: Parrish Robison DO
== END | disposition home or self-care (01) ==
LOC: OR 06:00
PROVIDERS: ATTEND Internal Medicine Gastroenterology
DX: K57.30 Diverticulosis of large intestine without perforation or abscess without bleeding (principal); K63.5 Polyp of colon; K62.1 Rectal polyp; K64.8 Other hemorrhoids; K62.89 Other specified diseases of anus and rectum; I10 Essential (primary) hypertension; K62.5 Hemorrhage of anus and rectum; Z68.39 Body mass index [BMI] 39.0-39.9, adult; Z01.810 Encounter for preprocedural cardiovascular examination; D12.8 Benign neoplasm of rectum
CPT/HCPCS: 45384; 93005; J2250; J2704; J3010

== ENCOUNTER 2020-07-27 21:22 | Emergency (ER) | payer BC ==
[~2020-07-27] VITALS: Ht 157.5 cm; Wt 103.4 kg
[~2020-07-27 21:22] MED LIST changes: -FENTANYL CITRATE/PF 100MCG/2 ML INJ ONE; -HYOSCYAMINE 0.125 MG TAB ONE; -MIDAZOLAM HCL 2 MG/2 ML VIAL ONE; -PROPOFOL IV EMULSION 10 MG/ML 50 ML VIAL ONE
--- OUTSIDE RECORDS SUMMARY | 2020-07-27 22:36 | XMS REPORT | Clinical Summary ---
Author Author [facility] Address Unknown Phone Unavailable Care Team Providers Care Clay Molder Name Role Phone Parrish Robison DO PCP Allergies No Known Active Allergies Medications End Date Status Medication Sig Dispensed Refills Start Date Active simvastatin (ZOCOR) 40 MG TK 1 T PO QD 0 12/16 tablet 7 Active benazepril-hydrochlorothi TK 1 T PO QD 0 12/16 azide (LOTENSIN HCT) 9 20-25 mg per tablet Active PARoxetine TAKE 1 90 capsule 3 mesylate,menop.sym, 7.5 CAPSULE(7.5 0 mg capsuleIndications: MG) BY MOUTH Well woman exam with DAILY routine gynecological exam 04/26/2020 Discontinued (Med List Clean up) valACYclovir (VALTREX) TK 2 TS PO Q 0 01 1000 MG tablet 12 H 8 04/26/2020 Discontinued (Med List Clean up) metroNIDAZOLE (FLAGYL) TK 1 T PO BID 0 01 500 MG tablet TAT 9 04/26/2020 Discontinued (Med List Clean up) ciprofloxacin (CIPRO) 500 TK 1 T PO BID 0 06/ MG tablet 9 02/25/2020 Discontinued (Reorder) PARoxetine Take 1 tablet 90 tablet 3 mesylate,menop.sym, 7.5 (7.5 mg 9 mg capsuleIndications: total) by Well woman exam with mouth daily. routine gynecological exam 05/20/2020 Discontinued PARoxetine Take 1 tablet 90 tablet 0 mesylate,menop.sym, 7.5 (7.5 mg 0 mg capsuleIndications: total) by Well woman exam with mouth daily. routine gynecological exam Active Problems Problem Noted Date At risk for breast cancer 08/18/2016 Overview: Overview: High risk surveillance based on elevate d lifetime risk of developing breast cancer; Ayo risk assessment of 17.7-30% increased lifetime risk Family history of malignant melanoma 03/03/2016 Family history of malignant neoplasm of breast in fir st degree relative 03/03/2016 Family history of malignant neoplasm of uterus 03/03 Encounters Care Team Description Date Type Specialty Lucina Bhakta NP Well woman exam with routine gynecologic al exam 05/20/2020 Refill Obstetrics and Gyne cology Monica Ha MA 05/03/2020 Telephone Obstetrics and Gyne cology Angelique Rice MD Well woman exam with routine gynecologic al exam (Primary Dx) 04/26/2020 Office Visit Obstetrics and Gyne cology 04/26/2020 Travel Ange Dutton MD Well woman exam with routine gynecologic al exam 02/25/2020 Refill Obstetrics and Gyne cology after 07/27/2019 Surgical History Surgery Date Site/Laterality Comments COLPOSCOPY 09/17/2014 - 09/16/2015 TUBAL LIGATION 09/17/1989 - via minilap 09/16/1990 TOTAL ABDOMINAL 09/17/1999 - with unilateral lyndsay pingo-oophorectomy (unknown HYSTERECTOMY 09/16/2000 laterality) Medical History Medical History Date Comments Abnormal Pap smear of cervix 01/2016 CTS (carpal tunnel syndrome) Urinary tract infection Hypertension High cholesterol Family History Medical History Relation Name Comments Breast cancer Mother Breast cancer Sister Relation Name Status Comments Mother Sister Social History Date Tobacco Use Types Packs/Day Years Used Former Smoker Cigarettes 0.5 10 Smokeless Tobacco: Never Used Drinks/Week oz/Week Comments Alcohol Use 4 Standard drinks or equivalent Yes Sex Assigned at Date Recorded Not on file Obstetrics History Term Pre Abrt (TAB) (SAB) (Ect) Mult Lvng Comments Grav Para 2 2 Both vag inally. 2 2 Date GA Total Labor Labor/2nd/3rd Weight Sex Delivery Anes PTL Charla A1 A5 Name Clin Outcome Term Term Last Filed Vital Signs Reading Time Taken Comments Vital Sign 122/93 04/26/2020 8:24 AM CDT Blood Pressure 86 04/26/2020 8:24 AM CDT Pulse - - Temperature - - Respiratory Rate - - Oxygen Saturation - - Inhaled Oxygen Concentration 98.9 kg (218 lb) 04/26/2020 8:24 AM CDT Weight 157.5 cm (5' 2") 04/26/2020 8:24 AM CDT Height 39.87 04/26/2020 8:24 AM CDT Body Mass Index Plan of Treatment Health Maintenance Due Date Last Done Comments CERVICAL CANCER SCREENING 1981 BREAST CANCER SCREENING 2010 COLONOSCOPY SCREENING 2010 SHINGLES VACCINES (#1) 2010 INFLUENZA VACCINE 04/17/2020 Results Not on fileafter 07/27/2019 Insurance Type Payer Benefit Subscriber ID Effective Phone Address Plan / Dates Group PPO BCBS BCBS [id number] 2016-P CHOICE resent PPO/BAYRON BOOTH PPO Advance Directives For more information, please contact: [phone] Patient Hotel Houseman Explanation Type Date Recorded Advance Directives, Living Will and Medical Power of Farmworker [place]
--- OUTSIDE RECORDS SUMMARY | 2020-07-27 22:37 | XMS REPORT | Continuity of Care Document ---
Author Author [facility] t Organization [facility] t Address [address] [place] [address] Phone Unavailable Care Team Providers Care Bpm Solution Architect Name Role Phone TIFFANIE ZIMMERMAN DO PCP Yony AIRPLANE DESIGNER, Lucina Attphys Leland LINARES, Monica Attphys Unavailable Krystal TOTH, Zenaida Merino Attphys [phone] Marija TOTH, Clarisa Cassidy Attphys [phone] Sherrie SOLORIO Attphys Unavailable Oralia VICTOR Attphys Unavailable Payers Payer Name Policy Type Policy Number Effective Date Expiration Date S lilian BCBSBCBS CHOICE PPO/FEDERAL EMPL [id number] 2016-Pre sentPPO [id number] 2016 00:00:00 [facility] Ppo [id number] 2016 00:00:[address] [facility] Problems Condition Name Condition Details Condition Category Status Onset Date Resolution Date Last Treatment Date Treating Clinician Comments Source At risk for breast cancer At risk for breast cancer Disease Ac tijacob 2016-08-18 00:00:00 Overview: Overvi ew: High risk surveillance based on elevated lifetime risk of developing breast cancer; Ayo risk assessment of 17.7- 30% increased lifetime risk Raman Rodriguez Family history of malignant melanoma Family history of malig nant melanoma Disease Active 2016-03-03 00:00:00 Raman Ferrerist Family history of malignant neoplasm of breast in firs t degree relative Family history of malignant neoplasm of breast in first degree relative Disease Active 2016-03-03 00:00:00 Raman Ferrerist Family history of malignant neoplasm of uterus Family history of malignant neoplasm of uterus Disease Active 2016-03-03 00:00:00 Raman Rodriguez Hemorrhagic diarrhea Bloody diarrhea Problem Active [facility] Allergies, Adverse Reactions, Alerts Allergy Name Allergy Type Status Severity Reaction(s) Onset Date Inacti ve Date Treating Clinician Comments Source No Known Contrast Allergies DA Active U 2007-08-01 00:00: 00 [facility] No Known Drug Allergies DA Active U 2007-08-01 00:00:00 [facility] No Known Food Allergies DA Active U 2007-08-01 00:00:00 [facility] No Known Other Allergies DA Active U 2007-08-01 00:00:00 [facility] Family History Family Member Diagnosis Comments Start Date Stop Date Source Natural mother Breast cancer Raman Rodriguez Natural sister Breast cancer Raman Rodriguez Social History Social Habit Start Date Stop Date Quantity Comments Source History of tobacco use Cigarette Smoker Raman Rodriguez Sex [facility] [employer] Cigarettes smoked current (pack per day) - Reported 00:00:00 2020-04-26 00:00:00 Raman Rodriguez Cigarette pack-years 2020-04-26 00:00:00 2020-04-26 00:00:00 Raman Rodriguez Tobacco use and exposure 2020-04-26 00:00:00 2020-04-26 00:00:00 Neve r used Raman Rodriguez Alcohol intake 2020-04-26 00:00:00 2020-04-26 00:00:00 Current drinker of alcohol (finding) Raman Rodriguez Smoking Status Start Date Stop Date Source Former smoker 2020-04-26 00:00:00 2020-04-26 00:00:00 Raman Rodriguez Medications Ordered Medication Name Filled Medication Name Start Date Stop Da te Current Medication? Ordering Clinician Indication Dosage Frequency Signature (SIG) Comments Components Source PARoxetine mesylate,menop.sym, 7.5 mg capsule 2020-05-20 00: 00:00 Yes Well woman exam with routine gynecological exam TAKE 1 CAPSULE(7.5 MG) BY MOUTH DAILY Raman Rodriguez PARoxetine mesylate,menop.sym, 7.5 mg capsule 06-03-10 00:00:00 2020-05-20 00:00:00 No Well woman exam with routine gynecological exam 7.5mg QD Take 1 tablet (7.5 mg total) by mouth daily. Issac Rodriguez PARoxetine mesylate,menop.sym, 7.5 mg capsule 05-03-27 00:00:2020-02-25 00:00:00 No Well woman exam with routine gynecological exam 7.5mg QD Take 1 tablet (7.5 mg total) by mouth daily. Issac Rodriguez metroNIDAZOLE (FLAGYL) 500 MG tablet 2019-02-23 00:00: 00 2020-04-26 00:00:00 No TK 1 T PO BID MELINA Rodriguez ciprofloxacin (CIPRO) 500 MG tablet 2019-02-23 00:00:0 0 2020-04-26 00:00:00 No TK 1 T PO BID Raman [facility] Acetaminophen With Codeine (Tylenol With Codeine #3 Tablet) 1 Each Tablet, 300 Mg Oral Acetaminophen With Codeine (Tylenol With Codeine #3 Tablet) 1 Each Tablet, 300 Mg Oral 2019-02-23 00:00:00 2019-04-04 00:00:00 No Lean [facility]to [facility] [employer] 300 Every 4 Hours While Awake as needed for Pain [facility] Ciprofloxacin Hcl (Cipro) 500 Mg Tablet, 500 Mg Oral C iprofloxacin Hcl (Cipro) 500 Mg Tablet, 500 Mg Oral 2019-02-23 00:00:00 2019-04-04 00:00:00 No José [facility] [employer] 500 Twice A Day [facility] Metronidazole (Flagyl) 500 Mg Tablet, 500 Mg Oral Metr onidazole (Flagyl) 500 Mg Tablet, 500 Mg Oral 2019-02-23 00:00:00 2019-04-04 00:00:00 No [facility] [employer] 500 Twice A Day [facility] Ondansetron Hcl (Zofran*) 4 Mg Tablet, 4 Mg Sublingual Ondansetron Hcl (Zofran*) 4 Mg Tablet, 4 Mg Sublingual 2019-02-23 00:00:00 2019-04-04 00:00:00 No [facility] 4 Every 6 Hours as needed for Nausea [facility] benazepril-hydrochlorothiazide (LOTENSIN HCT) 20-25 mg per t ablet 2018-12-27 00:00:00 Yes TK 1 T PO QD [facility] valACYclovir (VALTREX) 1000 MG tablet 2018-02-06 00:00 :00 2020-04-26 00:00:00 No TK 2 TS PO Q 12 H D[facility] simvastatin (ZOCOR) 40 MG tablet 2017-01-02 00:00:00 Yes TK 1 T PO QD Raman Ferrerist Benazepril/Hydrochlorothiazide (Benazepril-Hctz 20-25 Mg Tab) 1 Each Tablet Benazepril/Hydrochlorothiazide (Benazepril-Hctz 20-25 Mg Tab) 1 Each Tablet Yes 1 Daily [facility] Metronidazole (Flagyl) 250 Mg Tablet Metronidazole (Flagyl) 250 Mg Tablet Yes 500 Three Times A Day [facility] Paroxetine Hcl 20 Mg Tablet Paroxetine Hcl 20 Mg Tablet Yes 7.5 Daily for Hot Flashes [facility] Simvastatin 40 Mg Tablet Simvastatin 40 Mg Tablet Yes 40 Today At 9:00PM [facility] Valsartan/Hydrochlorothiazide (Diovan Hc t 320-12.5 Mg Tab) 1 Each Tablet, 1 Each Oral Valsartan/Hydrochlorothiazide (Diovan Hc t 320-12.5 Mg Tab) 1 Each Tablet, 1 Each Oral 2019-04-04 00:00:00 No 1 Daily [facility] Brisdelle , 7.5 Brisdelle , 7.5 2018-03-26 00:00:00 No 7.5 [facility] Brisdloe , Oral Brisdloe , Oral 2018-03-22 00:00:00 No Daily [facility] Ezetimibe/Simvastatin (Vytorin 10-20 Mg Tablet) 1 Each Tablet, 1 Each Oral Ezetimibe/Simvastatin (Vytorin 10-20 Mg Tablet) 1 Each Tablet, 1 Each Oral 2018-03-22 00:00:[address] [facility] Yue Extract (Yue) 500 Mg Capsule, 500 Mg Oral Yue E xtract (Yue) 500 Mg Capsule, 500 Mg Oral 2015-02-16 00:00:00 No [address] [facility] Vital Signs Vital Name Observation Time Observation Value Comments Source Systolic blood pressure 2020-04-26 08:24:00 122 mm[Hg] [facility] Diastolic blood pressure 2020-04-26 08:24:00 93 mm[Hg] [facility] Heart rate 2020-04-26 08:24:00 86 /min [facility] Body height 2020-04-26 08:24:00 157.5 cm [facility] Body weight 2020-04-26 08:24:00 98.884 kg [facility] BMI 2020-04-26 08:24:00 39.87 kg/m2 [facility] Procedures Procedure Date / Time Performed Performing Clinician [facility] Computed tomography of abdomen and pelvis with contrast 2018 00:00:00 JOSÉ MIGUEL MICHELE [facility] Plan of Care Planned Activity Planned Date Details Comments Source Future Scheduled Test 2020-04-17 00:00:00 INFLUENZA VACCINE [code = INFLUENZA VACCINE] [facility] Future Scheduled Test 2010 00:00:00 BREAST CANCER SCRE ENING [code = BREAST CANCER SCREENING] [facility] Future Scheduled Test 2010 00:00:00 COLONOSCOPY SCREEN ING [code = COLONOSCOPY SCREENING] [facility] Future Scheduled Test 2010 00:00:00 SHINGLES VACCINES (#1) [code = SHINGLES VACCINES (#1)] [facility] Future Scheduled Test 1981 00:00:00 Screening for jarrod gnant neoplasm of cervix (procedure) [code = 522766472] Camargo Rogelio zimmerman Encounters Start Date/Time End Date/Time Encounter Type Admission Type [facility] Facility Care Department Encounter ID Source 2020-04-26 00:00:00 2020-04-26 00:00:00 Outpatient [facility]EL[facility] ENRI[facility] [id number] [facility] 2019-04-04 00:16:00 2019-04-05 14:24:00 Discharged Inpatient [facility] [id number] [facility] 2019-02-23 10:19:00 2019-02-23 14:39:00 Departed Emergency Room 1 MARIANA SOLORIO [facility] [id number] [facility] Results Test Description Test Time Test Comments Results Result Comments Source Hemoglobin 2019-04-05 12:22:00 Test Item Hemoglobin (test code = 74484-1) 13.5 12.0-16.[address] CenterHematocrit2019-07-20 12:22:00* Test Item Value Reference Range Interpretation Comments Hematocrit (test code = 4544-3) 40.4 34.2-44.1 [facility]odium [id number] 06:19:00* Test Item Value Reference Range Interpretation Comments Sodium Level (test code = 2951-2) 139 136-[address] [facility] CenterPotassium [id number] 06:19:00* Test Item Value Reference Range Interpretation Comments Potassium Level (test code = 2823-3) 3.9 3.5-5.[address] [facility] CenterChloride [id number] 06:19:00* Test Item Value Reference Range Interpretation Comments Chloride Level (test code = 2075-0) 103 98-[address] [facility] CenterCarbon Dioxide [id number] 06:19:00* Test Item Value Reference Range Interpretation Comments Carbon Dioxide Level (test code = 2028-9) 25 22-[address] [facility] CenterAnion [id number] 06:19:00* Test Item Value Reference Range Interpretation Comments Anion Gap (test code = 41083-7) 14.9 8-[address] [facility] CenterBlood Urea [id number] 06:19:00* Test Item Value Reference Range Interpretation Comments Blood Urea Nitrogen (test code = 3094-0) 6 7-[address] [facility] CenterCreatinine2019-07-20 06:19:00* Test Item Value Reference Range Interpretation Comments Creatinine (test code = 2160-0) 0.75 0.57-1.[address] CenterBUN/Creatinine [id number] 06:19:00* Test Item Value Reference Range Interpretation Comments BUN/Creatinine Ratio (test code = 3097-3) 8 6-[address] CenterEstimat Glomerular Filtration Rate 2019-04-05 06:19:00* Test Item Value Reference Range Interpretation Comments Estimat Glomerular Filtration Rate (test code = 445406977) > 60 >60 Ranges were taken from the National Kidney Disease Education Program and the [facility] literature.Reference ranges:60 or greater: Nfkuid72-81 ( for 3 consecutive months): Chronic kidney disease 15 or less: Kidney failureCH[facility] CenterGlucose [id number] 06:19:00* Test Item Value Reference Range Interpretation Comments Glucose Level (test code = XZH7942) 105 74-[address] [facility] CenterCalcium [id number] 06:19:00* Test Item Value Reference Range Interpretation Comments Calcium Level (test code = 76287-2) 10.2 8.4-10.[address] [facility] CenterTotal [id number] 06:19:00* Test Item Value Reference Range Interpretation Comments Total Bilirubin (test code = 1975-2) 0.4 0.2-1.[address] CenterAspartate Amino Transf (AST/SGOT) 2019-04-05 06:19:00* Test Item Value Reference Range Interpretation Comments Aspartate Amino Transf (AST/SGOT) (test code = Aspartate Amino Transf (AST/SGOT)) 21 5-[address] [facility] CenterAlanine Aminotransferase (ALT/SGPT) 2019-04-05 06:19:00* Test Item Value Reference Range Interpretation Comments Alanine Aminotransferase (ALT/SGPT) (test code = 1742-6) 24 0-[address] CenterTotal [id number] 06:19:00* Test Item Value Reference Range Interpretation Comments Total Protein (test code = 2885-2) 7.2 6.5-8.[address] CenterAlbumin2019-07-20 06:19:00* Test Item Value Reference Range Interpretation Comments Albumin (test code = 1751-7) 3.6 3.5-5.[address] [facility] CenterGlobulin2019-07-20 06:19:00* Test Item Value Reference Range Interpretation Comments Globulin (test code = 71449-5) 3.6 2.3-3.[address] [facility] CenterAlbumin/Globulin [id number] 06:19:00 * Test Item Value Reference Range Interpretation Comments Albumin/Globulin Ratio (test code = 1759-0) 1.0 0.8-2.[address] CenterAlkaline Elighgwhfoe5447-30-32 06:19:00* Test Item Value Reference Range Interpretation Comments Alkaline Phosphatase (test code = 6768-6) 65 40-150 [facility] Alicetool Lactoferrin (LAB)2019-04-04 12:28:00* Test Item Value Reference Range Interpretation Comments Stool Lactoferrin (LAB) (test code = 48737-1) POSITIVE NEGATIVE H Testing on stool aspirate specimens is outside keying machine operator claims since specime n type not validated on this assay.[facility] Clostridium Difficile Toxin A & [id number] 12:28:00* Test Item Value Reference Range Interpretation Comments Clostridium Difficile Toxin A & B (test code = 819008951) POSI TIVE NEGATIVE H Results called to SALUD CLARK at 1227 on 04/04/19 by Mary Arredondo. RB [place].Re sults called to CHARLA QUIROGA in infection control at 1227 on 04/04/19 by Mary steinberg.Testing on stool aspirate specimens is outside keying machine operator claims since specimen type not validated on this assay.[facility] CenterProthrombin [id number] 23:45:00* Test Item Value Reference Range Interpretation Comments Prothrombin Time (test code = 5902-2) 12.5 11.9-14.[address] CenterProthromb Time International Ratio 2019-04-03 23:45:00* Test Item Value Reference Range Interpretation Comments Prothromb Time International Ratio (test code = 6301-6) 0.89 Oral Anticoagulant Therapy INR Values:1. Low Intensity Therapy 1.5 - 2.02 . Moderate Intensity Therapy 2.0 - 3.03. High Intensity Therapy(1) 2.5 - 3. 54. High Intensity Therapy(2) 3.0 - 4.05. Panic Value INR > 5.[address] [facility] CenterActivated Partial Thromboplast Time 2019-04-03 23:45:00* Test Item Value Reference Range Interpretation Comments Activated Partial Thromboplast Time (test code = 12332-0) 32.4 23.8-35.[address] [facility] CenterUrine [id number] 23:34:00* Test Item Value Reference Range Interpretation Comments Urine WBC (test code = 5821-4) 0-5 0-[address] CenterUrine [id number] 23:34:00* Test Item Value Reference Range Interpretation Comments Urine RBC (test code = 07773-2) 0-5 0-[address] [facility] CenterUrine [id number] 23:34:00* Test Item Value Reference Range Interpretation Comments Urine Bacteria (test code = 30076-8) RARE NONE [facility] CenterUrine Epithelial [id number] 23:34:00 * Test Item Value Reference Range Interpretation Comments Urine Epithelial Cells (test code = 22429-8) MODERATE NONE [facility] CenterWhite Blood [id number] 23:25:00* Test Item Value Reference Range Interpretation Comments White Blood Count (test code = 6690-2) 9.50 4.8-10.[address] CenterRed Blood [id number] 23:25:00* Test Item Value Reference Range Interpretation Comments Red Blood Count (test code = 789-8) 4.51 3.6-5.[address] CenterMean Corpuscular [id number] 23:25:00* Test Item Value Reference Range Interpretation Comments Mean Corpuscular Volume (test code = 787-2) 86.7 81-[address] CenterMean Corpuscular Ijwatczktu3906-94-33 23:25:00* Test Item Value Reference Range Interpretation Comments Mean Corpuscular Hemoglobin (test code = 785-6) 29.5 28-[address] CenterMean Corpuscular Hemoglobin Concent 2019-04-03 23:25:00* Test Item Value Reference Range Interpretation Comments Mean Corpuscular Hemoglobin Concent (test code = 786-4) 34.0 31-[address] [facility] CenterRed Cell Distribution [id number] 23:25:00* Test Item Value Reference Range Interpretation Comments Red Cell Distribution Width (test code = 29166-6) 13.2 11.7 -14.[address] CenterPlatelet [id number] 23:25:00* Test Item Value Reference Range Interpretation Comments Platelet Count (test code = 777-3) 330 140-[address] [facility] CenterNeutrophils (%) (Auto)2019-04-03 23:25:00 * Test Item Value Reference Range Interpretation Comments Neutrophils (%) (Auto) (test code = 73571-4) 63.5 38.7-80.[address] CenterLymphocytes (%) (Auto)2019-04-03 23:25:00 * Test Item Value Reference Range Interpretation Comments Lymphocytes (%) (Auto) (test code = 736-9) 21.2 18.0-39.[address] CenterMonocytes (%) (Auto)2019-04-03 23:25:00* Test Item Value Reference Range Interpretation Comments Monocytes (%) (Auto) (test code = 5905-5) 7.5 4.4-11.[address] [facility] CenterEosinophils (%) (Auto)2019-04-03 23:25:00 * Test Item Value Reference Range Interpretation Comments Eosinophils (%) (Auto) (test code = 713-8) 5.2 0.0-6.[address] [facility] CenterBasophils (%) (Auto)2019-04-03 23:25:00* Test Item Value Reference Range Interpretation Comments Basophils (%) (Auto) (test code = 706-2) 1.3 0.0-1.[address] CenterIM GRANULOCYTES %2019-04-03 23:25:00* Test Item Value Reference Range Interpretation Comments IM GRANULOCYTES % (test code = IM GRANULOCYTES %) 1.3 0.0- 1.[address] CenterNeutrophils # (Auto)2019-04-03 23:25:00* Test Item Value Reference Range Interpretation Comments Neutrophils # (Auto) (test code = 751-8) 6.1 2.1-6.[address] CenterLymphocytes # (Auto)2019-04-03 23:25:00* Test Item Value Reference Range Interpretation Comments Lymphocytes # (Auto) (test code = 42826-5) 2.0 1.0-3.[address] [facility] CenterMonocytes # (Auto)2019-04-03 23:25:00* Test Item Value Reference Range Interpretation Comments Monocytes # (Auto) (test code = 742-7) 0.7 0.2-0.[address] CenterEosinophils # (Auto)2019-04-03 23:25:00* Test Item Value Reference Range Interpretation Comments Eosinophils # (Auto) (test code = 711-2) 0.5 0.0-0.[address] CenterBasophils # (Auto)2019-04-03 23:25:00* Test Item Value Reference Range Interpretation Comments Basophils # (Auto) (test code = 704-7) 0.1 0.0-0.[address] CenterAbsolute Immature Granulocyte (auto 2019-04-03 23:25:00* Test Item Value Reference Range Interpretation Comments Absolute Immature Granulocyte (auto (ayaka t code = Absolute Immature Granulocyte (auto) 0.12 0-0.[address] CenterUrine [id number] 23:25:00* Test Item Value Reference Range Interpretation Comments Urine Color (test code = 5778-6) YELLOW YELLOW [facility] CenterUrine [id number] 23:25:00* Test Item Value Reference Range Interpretation Comments Urine Clarity (test code = 31597-5) SL CLOUDY CLEAR [facility] CenterUrine Specific [id number] 23:25:00 * Test Item Value Reference Range Interpretation Comments Urine Specific Huger (test code = 5811-5) <=1.005 1.010-1.[address] [facility] CenterUrine [id number] 23:25:00* Test Item Value Reference Range Interpretation Comments Urine pH (test code = 83797-2) 6.5 5-[address] [facility] CenterUrine Leukocyte [id number] 23:25:00* Test Item Value Reference Range Interpretation Comments Urine Leukocyte Esterase (test code = 65356-9) NEGATIVE NEGATIV E [facility] CenterUrine [id number] 23:25:00* Test Item Value Reference Range Interpretation Comments Urine Nitrite (test code = 21784-9) NEGATIVE NEGATIVE [facility] CenterUrine [id number] 23:25:00* Test Item Value Reference Range Interpretation Comments Urine Protein (test code = 17069-8) NEGATIVE NEGATIVE [facility] CenterUrine Glucose (UA)2019-04-03 23:25:00* Test Item Value Reference Range Interpretation Comments Urine Glucose (UA) (test code = 07244-2) NEGATIVE NEGATIVE [facility] CenterUrine [id number] 23:25:00* Test Item Value Reference Range Interpretation Comments Urine Ketones (test code = 99498-8) NEGATIVE NEGATIVE [facility] Wlkxtkekbvpp5946-26-18 23:25:00* Test Item Value Reference Range Interpretation Comments Urine Urobilinogen (test code = 71180-5) 0.2 0.2-[address] [facility] CenterUrine [id number] 23:25:00* Test Item Value Reference Range Interpretation Comments Urine Bilirubin (test code = 1977-8) NEGATIVE NEGATIVE [facility] CenterUrine [id number] 23:25:00* Test Item Value Reference Range Interpretation Comments Urine Blood (test code = 26643-2) NEGATIVE NEGATIVE [facility] Alicetool Occult [id number] 23:24:00* Test Item Value Reference Range Interpretation Comments Stool Occult Blood (test code = 2335-8) POSITIVE NEGATIVE H [facility] [id number] 12:23:00 [facility] [address] [address] Patient Name: ROCIO HIGUERA MR #: [id number] : 1960 Age/Sex: 58/F Req #: [id number] Adm Physician: Ordered by: JOSÉ MIGUEL MICHELE AIRPLANE DESIGNER Report #: [id number] Location: ER Room/Bed: Procedure: [id number] CT/C T ABDOMEN/PELVIS W Exam Date: 02/23/19 Exam Time: 12 15 REPORT STATUS: Signed EXAM: CT of the abdomen and pelvis WITH contrast HISTORY: LLQ/left flank pain, r ule out diverticulitis. COMPARISON: None. TECHNIQUE: The abdomen a nd pelvis were scanned utilizing a multidetector helical scanner. Coronal and sagittal reformats are provided. PROTOCOL: Routine IV CONTRAST: 100 cc of Isovue-370. ORAL CONTRAST: Dilute Gastro grafin RADIATION DOSE: Total DLP: 913.49 mGy*cm Estimated effective dose: (DLP x 0.015 x size factor) Dose modulation, iterative reconstruction, and/or weight based adjustment of the mA/kV was util ized to reduce the radiation dose to as low as reasonably achievable. COMPLICATIONS: None FINDINGS: LOWER THORAX: Unremarkable. HEPA TOBILIARY: No mass. No biliary dilation. No calcified gallstone. SPLEE N: No splenomegaly. PANCREAS: No focal masses or ductal dilatation. Viraj ed diffuse parenchymal atrophy. ADRENALS: No discrete adrenal nodule. KID NEYS/URETERS: No hydronephrosis, stones, or definite solid mass lesions. PELVIC ORGANS/BLADDER: The visualized pelvic organs appear unremarkable. GI TRACT: Colonic diverticulosis, most notably the sigmoid colon. Focal wall thickening and adjacent fat stranding about a sigmoid diverticulum (axial i mage 64). The appendix is normal. PERITONEUM / RETROPERITONEUM: No fr ee air or fluid. LYMPH NODES: No pathologically enlarged lymph node. VESSELS : Mild scattered atherosclerotic vascular calcifications. BONES: No aggressiv e osseous lesion or acute fracture. SOFT TISSUES: Unremarkable. IMPRE SSION: Acute sigmoid diverticulitis, without associated free air or abscess. Signed by: Dr. Guido Ruff D.O., M.M.M. on 02/23/2019 12:32 PM Dictat ed By: GUIDO RUFF DO 1232 Transcribed By: JAIME on 02/23/19 1232 COPY TO: JOSÉ MIGUEL MICHELE NP Lactic Acid Ewqsl1044-50-63 11:47:00* Test Item Value Reference Range Interpretation Comments Lactic Acid Level (test code = Lactic Acid Level) 8.8 4.5- 19.[address] [facility] CenterLactic Acid Wnvmi8163-87-76 11:47:00* Test Item Value Reference Range Interpretation Comments Lactic Acid Level (test code = Lactic Acid Level) 8.8 4.5- 19.8 [facility] Zxcei1790-14-11 11:46:00* Test Item Value Reference Range Interpretation Comments Sodium Level (test code = 2951-2) 135 136-[address] [facility] [facility] CenterPotassium Bbquy6000-22-41 11:46:00* Test Item Value Reference Range Interpretation Comments Potassium Level (test code = 2823-3) 3.8 3.5-5.[address] [facility] CenterChloride Vupgu3351-59-87 11:46:00* Test Item Value Reference Range Interpretation Comments Chloride Level (test code = 2075-0) 99 98-[address] [facility] [facility] CenterCarbon Dioxide Cubwd8184-45-17 11:46:00* Test Item Value Reference Range Interpretation Comments Carbon Dioxide Level (test code = 2028-9) 25 22-[address] [facility] CenterAnion Scm2865-92-14 11:46:00* Test Item Value Reference Range Interpretation Comments Anion Gap (test code = 04454-1) 14.8 8-[address] [facility] CenterBlood Urea Wqbfdigy2845-91-52 11:46:00* Test Item Value Reference Range Interpretation Comments Blood Urea Nitrogen (test code = 3094-0) 14 7-[address] [facility] CenterCreatinine2019-06-09 11:46:00* Test Item Value Reference Range Interpretation Comments Creatinine (test code = 2160-0) 0.85 0.57-1.[address] [facility] CenterBUN/Creatinine Linyz9801-12-73 11:46:00* Test Item Value Reference Range Interpretation Comments BUN/Creatinine Ratio (test code = 3097-3) 16 6- [facility] CenterEstimat Glomerular Filtration Rate 2019-02-23 11:46:00* Test Item Value Reference Range Interpretation Comments Estimat Glomerular Filtration Rate (test code = 635863583) > 60 >60 Ranges were taken from the National Kidney Disease Education Program and the [place] [employer] literature.Reference ranges:60 or greater: Veakjl26-24 ( for 3 consecutive months): Chronic kidney disease 15 or less: Kidney failureCH[facility] St[facility] CenterGlucose Kcfwc8338-70-87 11:46:00* Test Item Value Reference Range Interpretation Comments Glucose Level (test code = OBP2539) 124 74-[address] [facility] CenterCalcium Qqhje3313-15-67 11:46:00* Test Item Value Reference Range Interpretation Comments Calcium Level (test code = 75565-1) 10.5 8.4-10.[address] [facility] CenterMagnesium Mwpfz4493-00-82 11:46:00* Test Item Value Reference Range Interpretation Comments Magnesium Level (test code = 95195-0) 1.9 1.3-2.[address] CenterTotal Itenzmkxa1489-49-65 11:46:00* Test Item Value Reference Range Interpretation Comments Total Bilirubin (test code = 1975-2) 0.6 0.2-1.[address] Medical CenterAspartate Amino Transf (AST/SGOT) 2019-02-23 11:46:00* Test Item Value Reference Range Interpretation Comments Aspartate Amino Transf (AST/SGOT) (test code = Aspartate Amino Transf (AST/SGOT)) 17 5-[address] [facility] CenterAlanine Aminotransferase (ALT/SGPT) 2019-02-23 11:46:00* Test Item Value Reference Range Interpretation Comments Alanine Aminotransferase (ALT/SGPT) (test code = 1742-6) 23 0-[address] [facility] CenterTotal Hrqcbjh2784-71-90 11:46:00* Test Item Value Reference Range Interpretation Comments Total Protein (test code = 2885-2) 8.1 6.5-8.[address] CenterAlbumin2019-06-09 11:46:00* Test Item Value Reference Range Interpretation Comments Albumin (test code = 1751-7) 4.4 3.5-5.[address] CenterGlobulin2019-06-09 11:46:00* Test Item Value Reference Range Interpretation Comments Globulin (test code = 97272-1) 3.7 2.3-3.[address] CenterAlbumin/Globulin Vbygd9572-75-07 11:46:00 * Test Item Value Reference Range Interpretation Comments Albumin/Globulin Ratio (test code = 1759-0) 1.2 0.8-2.[address] CenterAlkaline Naeylurppqi1345-40-58 11:46:00* Test Item Value Reference Range Interpretation Comments Alkaline Phosphatase (test code = 6768-6) 83 40-[address] CenterAmylase Efenr3863-75-85 11:46:00* Test Item Value Reference Range Interpretation Comments Amylase Level (test code = 1798-8) 60 25-[address] [facility] CenterLipase2019-06-09 11:46:00* Test Item Value Reference Range Interpretation Comments Lipase (test code = 3040-3) 6 8-[address] [facility] CenterMagnesium Iimxh5225-56-17 11:46:00* Test Item Value Reference Range Interpretation Comments Magnesium Level (test code = 25260-3) 1.9 1.3-2.[address] CenterAmylase Rhjep8541-49-43 11:46:00* Test Item Value Reference Range Interpretation Comments Amylase Level (test code = 1798-8) 60 25-[address] [facility] CenterLipase2019-06-09 11:46:00* Test Item Value Reference Range Interpretation Comments Lipase (test code = 3040-3) 6 8-[address] [facility] CenterUrine RIX2621-06-24 10:58:00* Test Item Value Reference Range Interpretation Comments Urine WBC (test code = 5821-4) 0-5 0-[address] CenterUrine QKB8667-40-47 10:58:00* Test Item Value Reference Range Interpretation Comments Urine RBC (test code = 95995-1) 0-5 0-[address] CenterUrine Daayctab6860-72-90 10:58:00* Test Item Value Reference Range Interpretation Comments Urine Bacteria (test code = 60185-2) FEW NONE [facility] CenterUrine Epithelial Pskll9703-65-94 10:58:00 * Test Item Value Reference Range Interpretation Comments Urine Epithelial Cells (test code = 03694-0) MODERATE NONE [facility] CenterUrine Blwf5328-24-59 10:58:00* Test Item Value Reference Range Interpretation Comments Urine Test (test code = 2106-3) NEGATIVE NEGATIVE [facility] CenterUrine Lolq8016-12-34 10:58:00* Test Item Value Reference Range Interpretation Comments Urine Test (test code = 2106-3) NEGATIVE NEGATIVE [facility] CenterUrine Jzygv9433-27-18 10:55:00* Test Item Value Reference Range Interpretation Comments Urine Color (test code = 5778-6) YELLOW YELLOW [facility] CenterUrine Vusqajd8782-54-06 10:55:00* Test Item Value Reference Range Interpretation Comments Urine Clarity (test code = 05011-6) CLEAR CLEAR [facility] CenterUrine Specific Jidtdvk5805-86-38 10:55:00 * Test Item Value Reference Range Interpretation Comments Urine Specific [place] (test code = 5811-5) <=1.005 1.010-1.[address] [facility] CenterUrine cU6882-49-26 10:55:00* Test Item Value Reference Range Interpretation Comments Urine pH (test code = 36667-5) 5 5-[address] [facility] CenterUrine Leukocyte Wibqumyy4495-02-31 10:55:00* Test Item Value Reference Range Interpretation Comments Urine Leukocyte Esterase (test code = 23329-9) NEGATIVE NEGATIV E [facility] CenterUrine Pdfqkut7076-10-56 10:55:00* Test Item Value Reference Range Interpretation Comments Urine Nitrite (test code = 67474-0) NEGATIVE NEGATIVE [facility] CenterUrine Agnjkds3180-67-13 10:55:00* Test Item Value Reference Range Interpretation Comments Urine Protein (test code = 82189-8) NEGATIVE NEGATIVE [facility] Glucose (UA)2019-02-23 10:55:00* Test Item Value Reference Range Interpretation Comments Urine Glucose (UA) (test code = 32116-7) NEGATIVE NEGATIVE [facility] CenterUrine Hwazyjs3731-09-26 10:55:00* Test Item Value Reference Range Interpretation Comments Urine Ketones (test code = 99186-9) NEGATIVE NEGATIVE [facility] Tugdfiygibll7674-56-92 10:55:00* Test Item Value Reference Range Interpretation Comments Urine Urobilinogen (test code = 28372-8) 0.2 0.2-[address] [facility] CenterUrine Stwrusudb0081-50-06 10:55:00* Test Item Value Reference Range Interpretation Comments Urine Bilirubin (test code = 1977-8) NEGATIVE NEGATIVE [facility] CenterUrine Odlto9335-92-67 10:55:00* Test Item Value Reference Range Interpretation Comments Urine Blood (test code = 09448-1) NEGATIVE NEGATIVE [facility] CenterWhite Blood Krnss7370-03-08 10:54:00* Test Item Value Reference Range Interpretation Comments White Blood Count (test code = 6690-2) 9.46 4.8-10.[address] [facility] CenterRed Blood Dudfz7723-15-60 10:54:00* Test Item Value Reference Range Interpretation Comments Red Blood Count (test code = 789-8) 4.91 3.6-5.[address] [facility] CenterHemoglobin2019-06-09 10:54:00* Test Item Value Reference Range Interpretation Comments Hemoglobin (test code = 45581-0) 14.7 12.0-16.[address] CenterHematocrit2019-06-09 10:54:00* Test Item Value Reference Range Interpretation Comments Hematocrit (test code = 4544-3) 42.7 34.2-44.[address] [facility] CenterMean Corpuscular Neljbm6471-05-55 10:54:00* Test Item Value Reference Range Interpretation Comments Mean Corpuscular Volume (test code = 787-2) 87.0 81-[address] [facility] CenterMean Corpuscular Wggftgpyfk7914-38-74 10:54:00* Test Item Value Reference Range Interpretation Comments Mean Corpuscular Hemoglobin (test code = 785-6) 29.9 28-[address] [facility] CenterMean Corpuscular Hemoglobin Concent 2019-02-23 10:54:00* Test Item Value Reference Range Interpretation Comments Mean Corpuscular Hemoglobin Concent (test code = 786-4) 34.4 31-[address] [facility] CenterRed Cell Distribution Khfqz7844-58-42 10:54:00* Test Item Value Reference Range Interpretation Comments Red Cell Distribution Width (test code = 68010-4) 13.4 11.7 -14.[address] [facility] CenterPlatelet Wimzi3127-05-92 10:54:00* Test Item Value Reference Range Interpretation Comments Platelet Count (test code = 777-3) 290 140-[address] [facility] CenterNeutrophils (%) (Auto)2019-02-23 10:54:00 * Test Item Value Reference Range Interpretation Comments Neutrophils (%) (Auto) (test code = 11913-3) 76.6 38.7-80.[address] [facility] CenterLymphocytes (%) (Auto)2019-02-23 10:54:00 * Test Item Value Reference Range Interpretation Comments Lymphocytes (%) (Auto) (test code = 736-9) 13.3 18.0-39.[address] [facility] CenterMonocytes (%) (Auto)2019-02-23 10:54:00* Test Item Value Reference Range Interpretation Comments Monocytes (%) (Auto) (test code = 5905-5) 5.7 4.4-11.[address] [facility] CenterEosinophils (%) (Auto)2019-02-23 10:54:00 * Test Item Value Reference Range Interpretation Comments Eosinophils (%) (Auto) (test code = 713-8) 2.9 0.0-6.[address] CenterBasophils (%) (Auto)2019-02-23 10:54:00* Test Item Value Reference Range Interpretation Comments Basophils (%) (Auto) (test code = 706-2) 0.8 0.0-1.[address] [facility] CenterIM GRANULOCYTES %2019-02-23 10:54:00* Test Item Value Reference Range Interpretation Comments IM GRANULOCYTES % (test code = IM GRANULOCYTES %) 0.7 0.0- 1.[address] [facility] CenterNeutrophils # (Auto)2019-02-23 10:54:00* Test Item Value Reference Range Interpretation Comments Neutrophils # (Auto) (test code = 751-8) 7.2 2.1-6.[address] [facility] CenterLymphocytes # (Auto)2019-02-23 10:54:00* Test Item Value Reference Range Interpretation Comments Lymphocytes # (Auto) (test code = 94497-7) 1.3 1.0-3.[address] [facility] CenterMonocytes # (Auto)2019-02-23 10:54:00* Test Item Value Reference Range Interpretation Comments Monocytes # (Auto) (test code = 742-7) 0.5 0.2-0.[address] [facility] CenterEosinophils # (Auto)2019-02-23 10:54:00* Test Item Value Reference Range Interpretation Comments Eosinophils # (Auto) (test code = 711-2) 0.3 0.0-0.[address] [facility] CenterBasophils # (Auto)2019-02-23 10:54:00* Test Item Value Reference Range Interpretation Comments Basophils # (Auto) (test code = 704-7) 0.1 0.0-0.[address] [facility] CenterAbsolute Immature Granulocyte (auto 2019-02-23 10:54:00* Test Item Value Reference Range Interpretation Comments Absolute Immature Granulocyte (auto (ayaka t code = Absolute Immature Granulocyte (auto) 0.07 0-0.[address] [facility] CenterCHEST 2 LWVPL1242-15-26 09:20:00 [place] [address] Patient Name: ROCIO HIGUERA MR #: [id number] : 1960 Age/Sex: 57/F Req #: [id number] Adm Physician: Ordered by: TJ VICTOR MD Report #: [id number] Location: OR Room/Bed: Procedure: [id number] DX/CHEST 2 VIEWS Exam Date: 03/22/18 Exam Time: 0845 REPORT STATUS: Signed PROCEDURE: X-RAY CHEST, TWO VIEWS COMPARISON: [facility], DX, C HEST 2 VIEWS, 02/27/2012, 10:01. INDICATIONS: PREOPERATIVE CHEST XRAY FOR CY STOSCOPY FINDINGS: LUNGS: No consolidations or edema. PLE URA: No effusions or pneumothorax. HEART T MEDIASTINUM: The heart is within normal size-limits. BONES T SOFT TISSUES: No acute findings. CONCLUSION: No acute thoracic abnormality or significant interval change. Wallace Mcclure D.O. Dictated by: Wallace Mcclure D.O. on 03/22/2018 at 9:20 Electronically approved by: Wallace Mcclure D.O. on 03/22/2018 at 9:20 Dictated By: WALLACE Alvarez Signed By: WALLACE MCCLURE DO on 03/22/18919 Transcribed By: MIRELLA on 03/22 COPY TO: TJ VICTOR MD
[2020-07-27 23:07] LABS: BASOPHILS # (AUTO) 0.1 (0.0-0.1); EOSINOPHILS # (AUTO) 0.1 (0.0-0.4); HEMATOCRIT 39.7 % (34.2-44.1); HEMOGLOBIN 13.7 g/dL (12.0-16.0); LYMPHOCYTES # (AUTO) 1.6 (1.0-3.2); LYMPHOCYTES % 16.6 % (18.0-39.1); MEAN CORPUSCULAR HEMOGLOBIN 29.8 pg (28-32); MEAN CORPUSCULAR HGB CONC 34.5 g/dL (31-35); MEAN CORPUSCULAR VOLUME 86.5 fL (81-99); MONOCYTES # (AUTO) 0.9 (0.2-0.8); MONOCYTES % 8.7 % (4.4-11.3); PLATELET COUNT 282 x10e3/uL (140-360); RED BLOOD COUNT 4.59 x10e6/uL (3.6-5.1); RED CELL DISTRIBUTION WIDTH 13.2 % (11.7-14.4)
[2020-07-27 23:27] LABS: ALANINE AMINOTRANSFERASE 15 IU/L (0-55); ALBUMIN 4.4 g/dL (3.5-5.0); ALBUMIN/GLOBULIN RATIO 1.2 (0.8-2.0); ALKALINE PHOSPHATASE 61 IU/L (40-150); ANION GAP 18.3 mmol/L (8-16); BLOOD UREA NITROGEN 13 mg/dL (7-26); BUN/CREATININE RATIO 15 (6-25); CALCIUM 10.3 mg/dL (8.4-10.2); CARBON DIOXIDE 19 mmol/L (22-29); CHLORIDE 95 mmol/L (98-107); CREATININE, SERUM 0.85 mg/dL (0.57-1.11); EST GLOMERULAR FILTRATION RATE > 60 ML/MIN (60-); GLUCOSE 107 mg/dL (74-118); POTASSIUM 4.3 mmol/L (3.5-5.1); SODIUM 128 mmol/L (136-145)
[2020-07-28 00:43] LABS: CLARITY,URINE SL CLOUDY (CLEAR); COLOR,URINE YELLOW (YELLOW); KETONES,URINE 1+ (NEGATIVE); LEUKOCYTE ESTERASE ,URINE SMALL (NEGATIVE); NITRITE,URINE NEGATIVE (NEGATIVE); PROTEIN,URINE DIPSTICK NEGATIVE (NEGATIVE); URINE UROBILINOGEN 0.2 mg/dL (0.2 - 1)
[2020-07-28 00:44] LABS: BILIRUBIN,URINE SMALL (NEGATIVE)
[2020-07-28 00:52] LABS: BACTERIA,URINE FEW /HPF; EPITHELIAL CELLS,URINE MANY /LPF; RBC,URINE 0-5 /HPF (0-5)
[2020-07-28] MEDS ORDERED: ONDANSETRON HCL INJ 2MG/ML 2ML 2 MG/ML VIAL IV STA (00:56)
[2020-07-28] MEDS ORDERED: SODIUM CHLORIDE 0.9% 1000ML 1,000 ML IV STA (00:56)
--- NOTE | 2020-07-28 00:59 | Emergency Department Note ---
History of Present Illnes History of Present Illness Chief Complaint: Abdominal Complaints History of Present Illness This is a 59 year old female arrived to the ED with left lower quadrant abdominal pain associated with nausea and vomiting.. Chief Complaint Comment 59 Y FEMALE WALKS IN TO ED FOR CONCERNS OF " DIVERTIC ULITIS FLAIR UP", PER PATIENT THIS HAS BEEN ONGOING FOR 5 DAYS NOW PROGRESSING IN SEVERITY. PAIN IS LOCALIZED IN THE LLQ. STATES NAUSEA BUT NO VOMITING. NO BURNING WITH URINATION. PATIENT IS AN ESTABLISHED PATIENT OF DR Sophia GALINDO AND IS CURRENTLY ON LEVAQUIN AND FLAGYL AN OUTPATIENT. PATIENT APPEARS IN NO DISTRESS MAKING NEEDS KNOWN. Historian: Patient Arrival Mode: Car Duration (how long): day(s) Timing of current episode: constant, intermittent Progression: waxing and waning Past Medical/Family History Physician Review I have reviewed the patient's past medical and family history. Any updates have been documented here. Past Medical History Recent Fever: No Clinical Suspicion of Infectio: No New/Unexplained Change in Ment: No Past Medical History: Hypertension, UTI's, Hyperlipedemia Other Medical History: diverticulitis Past Surgical History: Hysterectomy, Tubal Ligation Other Surgery: carpal tunnel sx heel spur sx Social History Physically hurt or threatened: No Other Last Tetanus: UNKNOWN Physical Exam Related Data Allergies: Coded Allergies: No Known Allergies (Unverified , 02/27/12) Triage Vital Signs Vital Signs Date Time Temp Pulse Resp B/P (MAP) Pulse Ox O2 Delivery O2 Flow Rate FiO2 07/27/20 22:39 98.1 85 20 132/78 100 Room Air Vital signs reviewed: Yes Physical Exam CONSTITUTIONAL Constitutional: Present well-developed, Present well-nourished HENT HENT: Present normocephalic, Present atraumatic, Present oropharynx clear/moist, Present nose normal HENT L/R: Present left ext ear normal, Present right ext ear normal EYES Eyes: Reports PERRL, Reports conjunctivae normal NECK Neck: Present ROM normal PULMONARY Pulmonary: Present effort normal, Present breath sounds normal CARDIOVASCULAR Cardiovascular: Present regular rhythm, Present heart sounds normal, Present capillary refill normal, Present normal rate GASTROINTESTINAL Abdominal: Present soft, Present bowel sounds normal, Present tender GENITOURINARY Genitourinary: Present exam deferred SKIN Skin: Present warm, Present dry MUSCULOSKELETAL Musculoskeletal: Present ROM normal NEUROLOGICAL Neurological: Present alert, Present oriented x 3, Present no gross motor or sensory deficits PSYCHOLOGICAL Psychological: Present mood/affect normal, Present judgement normal Results Laboratory Result Diagram: 07/27/20229907/27/202299 Laboratory Laboratory Tests Test 07/28/20 00:00 07/27/20 23:00 Urine Color Yellow (YELLOW) Urine Clarity Sl cloudy (CLEAR) Urine pH 6 (5 - 7) Urine Specific [place] 1.025 (1.010-1.025) Urine Protein Negative (NEGATIVE) Urine Glucose (UA) Negative (NEGATIVE) Urine Ketones 1+ (NEGATIVE) Urine Blood Negative (NEGATIVE) Urine Nitrite Negative (NEGATIVE) Urine Bilirubin Small (NEGATIVE) Urine Urobilinogen 0.2 mg/dL (0.2 - 1) Urine Leukocyte Esterase Small (NEGATIVE) Urine RBC 0-5 /HPF (0-5) Urine WBC 11-20 /HPF (0-5) Urine Epithelial Cells Many /LPF (NONE) Urine Bacteria Few /HPF (NONE) White Blood Count 9.78 x10e3/uL (4.8-10.8) Red Blood Count 4.59 x10e6/uL (3.6-5.1) Hemoglobin 13.7 g/dL (12.0-16.0) Hematocrit 39.7 % (34.2-44.1) Mean Corpuscular Volume 86.5 fL (81-99) Mean Corpuscular Hemoglobin 29.8 pg (28-32) Mean Corpuscular Hemoglobin Concent 34.5 g/dL (31-35) Red Cell Distribution Width 13.2 % (11.7-14.4) Platelet Count 282 x10e3/uL (140-360) Neutrophils (%) (Auto) 72.0 % (38.7-80.0) Lymphocytes (%) (Auto) 16.6 % (18.0-39.1) Monocytes (%) (Auto) 8.7 % (4.4-11.3) Eosinophils (%) (Auto) 1.0 % (0.0-6.0) Basophils (%) (Auto) 1.0 % (0.0-1.0) Neutrophils # (Auto) 7.0 (2.1-6.9) Lymphocytes # (Auto) 1.6 (1.0-3.2) Monocytes # (Auto) 0.9 (0.2-0.8) Eosinophils # (Auto) 0.1 (0.0-0.4) Basophils # (Auto) 0.1 (0.0-0.1) Absolute Immature Granulocyte (auto 0.07 x10e3/uL (0-0.1) Sodium Level 128 mmol/L (136-145) Potassium Level 4.3 mmol/L (3.5-5.1) Chloride Level 95 mmol/L (98-107) Carbon Dioxide Level 19 mmol/L (22-29) Anion Gap 18.3 mmol/L (8-16) Blood Urea Nitrogen 13 mg/dL (7-26) Creatinine 0.85 mg/dL (0.57-1.11) Estimat Glomerular Filtration Rate > 60 ML/MIN (60-) BUN/Creatinine Ratio 15 (6-25) Glucose Level 107 mg/dL (74-118) Calcium Level 10.3 mg/dL (8.4-10.2) Total Bilirubin 0.5 mg/dL (0.2-1.2) Aspartate Amino Transf (AST/SGOT) 23 IU/L (5-34) Alanine Aminotransferase (ALT/SGPT) 15 IU/L (0-55) Alkaline Phosphatase 61 IU/L (40-150) Total Protein 8.2 g/dL (6.5-8.1) Albumin 4.4 g/dL (3.5-5.0) Globulin 3.8 g/dL (2.3-3.5) Albumin/Globulin Ratio 1.2 (0.8-2.0) Lipase 4 U/L (8-78) Imaging Imaging results reviewed: Yes Impressions IMPRESSION: Uncomplicated diverticulitis at the distal descending colon. Subtle findings which can be seen with urinary bladder cystitis. Correlate with urinalysis. Signed by: Get Harris DO on 07/28/2020 3:53 AM Assessment & Plan Medical Decision Making MDM 59-year-old well-appearing female arrived to the ED left lower quadrant abdominal pain. CT findings were consistent with uncomplicated diverticulitis. Patient given IV antibiotics and encouraged to complete her by mouth course at home. Patient tolerating oral intake and is stable for discharge at this time. The flexor return given. Assessment & Plan Final Impression: (1) Diverticulitis Depart Disposition: HOME, SELF-CARE Last Vital Signs Date Time Temp Pulse Resp B/P (MAP) Pulse Ox O2 Delivery O2 Flow Rate FiO2 07/27/20 22:39 98.1 85 20 132/78 100 Room Air Home Meds Active Scripts Tramadol Hcl (ULTRAM) 50 Mg Tablet, 50 MG PO Q6HR PRN for ABDOMINAL PAIN, #12 TAB Prov:BALDOMERO CHAVEZ, 07/28/20 Ondansetron Hcl* (ZOFRAN*) 4 Mg Tablet, 4 MG SL Q6H PRN for NAUSEA, #14 MG 0 Refills Prov:BALDOMERO CHAVEZ, 07/28/20 Reported Medications Montelukast Sodium (SINGULAIR) 10 Mg Tablet, 10 MG PO DAILY 06/09/19 Benazepril/Hydrochlorothiazide (BENAZEPRIL-HCTZ 20-25 MG TAB) 1 Each Tablet, 1 TAB PO DAILY 04/04/19 Paroxetine Hcl (PAROXETINE HCL) 20 Mg Tablet, 7.5 MG PO DAILY for HOT FLASHES, #30 TAB 03/26/18 Simvastatin (SIMVASTATIN) 40 Mg Tablet, 40 MG PO 2099, #30 TAB 03/22/18 BALDOMERO CHAVEZ, Jul 28, 2020 00:58
[2020-07-28] MEDS ORDERED: MORPHINE SULFATE INJ 4 MG/ML INJ 1ML IV ONE (01:00)
[2020-07-28] MEDS ORDERED: DIATRIZOATE MEGL/DIATRIZOA SOD 30 ML BTL PO ONE (01:11)
[2020-07-28] MEDS ORDERED: SODIUM CHLORIDE 0.9% 50ML 50 ML ONE (02:29)
[2020-07-28] MEDS ORDERED: IOPAMIDOL 370 MG/ML 200 ML INFUS..BTL INJ ONE (02:29)
--- NOTE | 2020-07-28 03:56 | Diagnostic Imaging Report ---
EXAM: CT Abdomen and Pelvis WITH contrast INDICATION: ^Y ^abd pain COMPARISON: Abdominal CT 03/05/2019. TECHNIQUE: Abdomen and pelvis were scanned utilizing a multidetector helical scanner from the lung base to the pubic symphysis after administration of IV contrast. Coronal and sagittal reformations were obtained. Routine protocol was performed. Scan was performed when during portal venous phase. IV CONTRAST: 100 mL of Isovue 370 ORAL CONTRAST: None COMPLICATIONS: None RADIATION DOSE: Total DLP: 772 mGy*cm Estimated effective dose: (DLP x 0.015 x size factor) mSv CTDIvol has been reviewed. It is below the limits set by the Radiation Protocol Committee (RPC). Dose modulation, iterative reconstruction, and/or weight based adjustment of the mA/kV was utilized to reduce the radiation dose to as low as reasonably achievable. FINDINGS: LINES and TUBES: None. LOWER THORAX: Unremarkable HEPATOBILIARY: No focal hepatic lesions. No biliary ductal dilation. GALLBLADDER: No radio-opaque stones or sludge. No wall thickening. SPLEEN: No splenomegaly. PANCREAS: There is fatty infiltration of the pancreas. ADRENALS: No adrenal nodules KIDNEYS/URETERS: Kidneys enhance symmetrically. No hydronephrosis. No cystic or solid mass lesions. No stones. GI TRACT: Subtle wall thickening and adjacent inflammation at the distal descending colon. Several colonic diverticula, mostly in the distal colon. Appendix is normal. PELVIC ORGANS/BLADDER: Hysterectomy. No adnexal masses. Mild perivesicular fat stranding. LYMPH NODES: No lymphadenopathy. VESSELS: Arterial calcifications. PERITONEUM / RETROPERITONEUM: No free air or fluid. BONES: Degenerative changes. SOFT TISSUES: Unremarkable. IMPRESSION: Uncomplicated diverticulitis at the distal descending colon. Subtle findings which can be seen with urinary bladder cystitis. Correlate with urinalysis. Signed by: Get Harris DO on 07/28/2020 3:53 AM
[2020-07-28] MEDS ORDERED: ZOFRAN4 MG SL (05:08)
[2020-07-28] MEDS ORDERED: ULTRAM50 MG PO (05:08)
[2020-07-28 05:38] VITALS: BP 125/88
== END 2020-07-28 05:40 | disposition home or self-care (01) ==
LOC: ER 22:33
DX: R10.32 Left lower quadrant pain (principal); R11.2 Nausea with vomiting, unspecified; K57.32 Diverticulitis of large intestine without perforation or abscess without bleeding; I10 Essential (primary) hypertension; E78.5 Hyperlipidemia, unspecified
CPT/HCPCS: 36415; 74177; 80053; 81001; 83690; 85025; 99284; J2405; J7030; Q9967

== ENCOUNTER → 2021-01-19 | Outpatient (CLI) | payer BC ==
[~2021-01-19] MED LIST changes: +FISH OIL 1,0001 EAC2 PO; +ULTRAM50 MG PO
== END ==
LOC: US 09:24
PROVIDERS: ATTEND Internal Medicine Gastroenterology
DX: R10.10 Upper abdominal pain, unspecified (principal); R11.0 Nausea
CPT/HCPCS: 76705

== ENCOUNTER → 2021-01-21 | Day surgery (SDC) | payer BC ==
[~2021-01-21] MED LIST changes: +FENTANYL CITRATE/PF 100MCG/2 ML INJ ONE; +METOCLOPRAMIDE HCL 10 MG/2ML VIAL ONE; +MIDAZOLAM HCL 2 MG/2 ML VIAL ONE; +PANTOPRAZOLE 40 MG 10ML VIAL ONE; +POVIDONE IODINE 0.05% 0.05 % ML PO ONE; +PROPOFOL IV EMULSION 10 MG/ML 20 ML VIAL ONE
[2021-01-21 08:25] VITALS: BP 101/73
== END | disposition home or self-care (01) ==
LOC: OR 06:04
PROVIDERS: ATTEND Internal Medicine Gastroenterology
DX: K29.50 Unspecified chronic gastritis without bleeding (principal); K25.9 Gastric ulcer, unspecified as acute or chronic, without hemorrhage or perforation; K21.00 Gastro-esophageal reflux disease with esophagitis, without bleeding; K44.9 Diaphragmatic hernia without obstruction or gangrene; K63.5 Polyp of colon; R19.7 Diarrhea, unspecified; I10 Essential (primary) hypertension; Z01.810 Encounter for preprocedural cardiovascular examination; Z01.812 Encounter for preprocedural laboratory examination; Z20.822 Contact with and (suspected) exposure to COVID-19; Z68.41 Body mass index [BMI] 40.0-44.9, adult
CPT/HCPCS: 43239; 93005; C9113; J2250; J3010; U0002

== ENCOUNTER 2021-04-01 18:26 | Emergency (ER) | payer BC ==
[~2021-04-01] VITALS: Ht 157.5 cm; Wt 99.8 kg
[~2021-04-01 18:26] MED LIST changes: -FENTANYL CITRATE/PF 100MCG/2 ML INJ ONE; -METOCLOPRAMIDE HCL 10 MG/2ML VIAL ONE; -MIDAZOLAM HCL 2 MG/2 ML VIAL ONE; -PANTOPRAZOLE 40 MG 10ML VIAL ONE; -POVIDONE IODINE 0.05% 0.05 % ML PO ONE; -PROPOFOL IV EMULSION 10 MG/ML 20 ML VIAL ONE
[2021-04-01] MEDS ORDERED: ONDANSETRON HCL INJ 2MG/ML 2ML 2 MG/ML VIAL IV STA (19:22)
[2021-04-01] MEDS ORDERED: SODIUM CHLORIDE 0.9% 1000ML 1,000 ML IV SCH (19:30)
[2021-04-01 20:06] LABS: BASOPHILS # (AUTO) 0.1 (0.0-0.1); BASOPHILS % 0.6 % (0.0-1.0); CLARITY,URINE CLEAR (CLEAR); COLOR,URINE YELLOW (YELLOW); EOSINOPHILS % 0.4 % (0.0-6.0); HEMATOCRIT 38.6 % (34.2-44.1); HEMOGLOBIN 13.6 g/dL (12.0-16.0); KETONES,URINE TRACE (NEGATIVE); LEUKOCYTE ESTERASE ,URINE SMALL (NEGATIVE); LYMPHOCYTES # (AUTO) 1.2 (1.0-3.2); LYMPHOCYTES % 10.9 % (18.0-39.1); MEAN CORPUSCULAR HEMOGLOBIN 30.4 pg (28-32); MEAN CORPUSCULAR HGB CONC 35.2 g/dL (31-35); MEAN CORPUSCULAR VOLUME 86.2 fL (81-99); MONOCYTES # (AUTO) 0.9 (0.2-0.8); MONOCYTES % 8.2 % (4.4-11.3); NEUTROPHILS # (AUTO) 8.9 (2.1-6.9); NEUTROPHILS % 78.7 % (38.7-80.0); NITRITE,URINE NEGATIVE (NEGATIVE); PLATELET COUNT 340 x10e3/uL (140-360); PROTEIN,URINE DIPSTICK NEGATIVE (NEGATIVE); RED BLOOD COUNT 4.48 x10e6/uL (3.6-5.1); RED CELL DISTRIBUTION WIDTH 12.6 % (11.7-14.4); URINE UROBILINOGEN 0.2 mg/dL (0.2 - 1)
[2021-04-01] MEDS ORDERED: DIATRIZOATE MEGL/DIATRIZOA SOD 30 ML BTL PO ONE (20:08)
[2021-04-01 20:17] LABS: BACTERIA,URINE MODERATE /HPF; EPITHELIAL CELLS,URINE MANY /LPF; WBC,URINE (MAN) 0-5 /HPF (0-5)
[2021-04-01 20:19] LABS: ALBUMIN 4.1 g/dL (3.5-5.0); ALBUMIN/GLOBULIN RATIO 1.1 (0.8-2.0); ANION GAP 17.7 mmol/L (8-16); CALCIUM 10.4 mg/dL (8.4-10.2); CREATININE, SERUM 0.87 mg/dL (0.57-1.11); POTASSIUM 3.7 mmol/L (3.5-5.1)
[2021-04-01] MEDS ORDERED: SODIUM CHLORIDE 0.9% 50ML 50 ML ONE (20:40)
[2021-04-01] MEDS ORDERED: IOPAMIDOL 370 MG/ML 200 ML INFUS..BTL INJ ONE (20:41)
[2021-04-01 22:18] VITALS: BP 137/83
== END 2021-04-01 22:19 | disposition home or self-care (01) ==
LOC: ER 19:22
DX: R10.32 Left lower quadrant pain (principal); K57.32 Diverticulitis of large intestine without perforation or abscess without bleeding; I10 Essential (primary) hypertension; E78.5 Hyperlipidemia, unspecified
CPT/HCPCS: 36415; 74177; 80053; 81001; 83690; 85025; 99283; Q9967